=== PATIENT | female | born 1985 | race Two or more races ===

== ENCOUNTER 2016-08-16 13:14 | Emergency (ER) | payer MEDICAID ==
[2016-08-16 13:23] VITALS: BP 110/64
--- NOTE | 2016-08-16 13:42 | ER Document Report ---
ED Medical Screen (RME) - General Chief Complaint: Flu Symptoms Stated Complaint: NECK AND SHOULDER PAIN,FEVER Notes: 31 yo muscle spasms to neck and upper back, also c/o flu like symptoms x 2 days. TRAVEL OUTSIDE OF THE [place] IN LAST 30 DAYS: No - Related Data Allergies/Adverse Reactions: No Known Allergies Allergy (Verified 08/16/16 13:28) Past Medical History - Social History Chew tobacco use (# tins/day): Yes Renal/ Medical History: Denies: Hx Peritoneal Dialysis Past Surgical History: Reports: Hx Gynecologic Surgery - - Immunizations Hx Diphtheria, Pertussis, Tetanus Vaccination: Yes - Mar 2014 Physical Exam - Vital signs Vitals: Temp Pulse Resp BP Pulse Ox 99.7 F 106 H 18 110/64 100 08/16/16 13:22 08/16/16 13:22 08/16/16 13:22 08/16/16 13:22 08/16/16 13:22 Course - Vital Signs Vital signs: Temp Pulse Resp BP Pulse Ox 99.7 F 106 H 18 110/64 100 08/16/16 13:22 08/16/16 13:22 08/16/16 13:22 08/16/16 13:22 08/16/16 13:22
--- NOTE | 2016-08-16 15:00 | ER Document Report ---
[id number] SHOULDER PAIN,FEVER Notes: The patient is a 31-year-old female who presents with 4 days of myalgias, cough , rhinorrhea and fever. She works at [employer] and is exposed to the public. She did not get her flu shot this year. Has not taken any Tylenol or Motrin. Denies vomiting, abdominal pain, headache, neck stiffness, chest pain, shortness of breath or recent travel. TRAVEL OUTSIDE OF THE [place] IN LAST 30 DAYS: No - Related Data Allergies/Adverse Reactions: No Known Allergies Allergy (Verified 08/16/16 13:28) Past Medical History - General Information source: Patient - Social History Smoking Status: Never Smoker Chew tobacco use (# tins/day): Yes Frequency of alcohol use: None Family History: None Patient has suicidal ideation: No Patient has homicidal ideation: No Renal/ Medical History: Denies: Hx Peritoneal Dialysis Past Surgical History: Reports: Hx Gynecologic Surgery - - Immunizations Hx Diphtheria, Pertussis, Tetanus Vaccination: Yes - Mar 2014 Review of Systems - Review of Systems Notes: REVIEW OF SYSTEMS: CONSTITUTIONAL: +fevers, +chills EENT: -eye pain, -difficulty swallowing, -nasal congestion CARDIOVASCULAR: -chest pain, -syncope. RESPIRATORY: +cough, -SOB GASTROINTESTINAL: -abdominal pain, -nausea, -vomiting, -diarrhea GENITOURINARY: -dysuria, -hematuria MUSCULOSKELETAL: +myalgias, -back pain, -neck pain SKIN: -rash or skin lesions. HEMATOLOGIC: -easy bruising or bleeding. LYMPHATIC: -swollen, enlarged glands. NEUROLOGICAL: -altered mental status or loss of consciousness, -headache, - neurologic symptoms PSYCHIATRIC: -anxiety, -depression. ALL OTHER SYSTEMS REVIEWED AND NEGATIVE. Physical Exam - Vital signs Vitals: Temp Pulse Resp BP Pulse Ox 99.7 F 106 H 18 110/64 100 08/16/16 13:22 08/16/16 13:22 08/16/16 13:08/16/16 13:08/16/16 13:22 - Notes Notes: PHYSICAL EXAMINATION: GENERAL: Well-appearing, well-nourished and in no acute distress. HEAD: Atraumatic, normocephalic. EYES: Pupils equal round and reactive to light, extraocular movements intact, sclera anicteric, conjunctiva are normal. ENT: nares patent, oropharynx clear without exudates. Moist mucous membranes. NECK: Normal range of motion, supple without lymphadenopathy LUNGS: Breath sounds clear to auscultation bilaterally and equal. No wheezes rales or rhonchi. HEART: Tachycardic, Regular rhythm without murmurs ABDOMEN: Soft, nontender, normoactive bowel sounds. No guarding, no rebound. No masses appreciated. EXTREMITIES: Normal range of motion, no pitting or edema. No cyanosis. NEUROLOGICAL: Cranial nerves grossly intact. Normal speech, normal gait. Normal sensory, motor, and reflex exams. PSYCH: Normal mood, normal affect. SKIN: Warm, Dry, normal turgor, no rashes or lesions noted. Course - Re-evaluation Re-evalutation: Patient appears well. Has symptoms of viral infection and may have influenza. Her symptoms are ongoing for 4 days, so she does not qualify for Tamiflu. Instructed patient had symptomatic treatment, given return precautions and she understands. - Vital Signs Vital signs: Temp Pulse Resp BP Pulse Ox 99.7 F 106 H 18 110/64 100 08/16/16 13:22 08/16/16 13:22 08/16/16 13:22 08/16/16 13:22 08/16/16 13:22 Discharge - Discharge Clinical Impression: Viral illness Condition: Stable Disposition: HOME, SELF-CARE Additional Instructions: INFLUENZA: The physician feels that you have influenza -- the "flu". Influenza is an infection caused by a virus. Symptoms include generalized aching, fever, headache, dry cough, and fatigue. Some patients with the flu also have nausea, vomiting, and diarrhea. The fever and aches usually last two to four days, with the cough persisting another one to two weeks. Treatment of the flu, for the most part, is simply treatment of symptoms. Rest, drink plenty of fluids, and use acetaminophen for fever and aches. Do not take aspirin. There is an anti-viral medication, called Tamiflu, which may help in "type A" flu, but it's not helpful in every case of flu, and only works if started within the first 24 - 48 hours of the start of symptoms. The physician will determine whether this medication can help you. To prevent spread of the virus, use good handwashing. Shared toys should be cleaned with disinfectant. Clean the toilets, sinks, and counter surfaces in bathrooms. Launder clothing in hot water. What are conditions that should receive medical attention? The development of difficulty breathing. Lip color changes to blue or purple. Persistent vomiting and unable to keep liquids down with signs of dehydration such as: dizziness when standing, unable to urinate, or if child/infant is crying no tears are noticed. Is less responsive than normal or becomes confused. How do I decrease the spread of flu in my home? Taking care of the sick patient at home: Keep the sick person in a room separate from the common areas of the house. Keep the "sickroom" door closed. If the person with the flu needs to leave the home, they should cover their nose/mouth when coughing or sneezing and wear a disposable (surgical) mask if available. These masks may be available at your local pharmacy, medical supply and hardware store. If the sick person is in common areas of the house, have them wear a surgical mask. If possible, have the sick person use a separate bathroom that should be cleaned daily with a household disinfectant. If you are the caregiver: Avoid being face to face with the sick adult person as much as possible. Try to stay at least 6 feet away and wear a disposable surgical mask when possible. When holding small children who are sick, place their chin on your shoulder so that they will not cough in your face. Wash your hands after you touch the sick person or handle their tissues and laundry. Wear a mask if you leave home, as you may be infected from taking care of someone and not know it yet. Watch yourself and others in the home for flu symptoms and contact your doctor if symptoms occur. NOTE: Antiviral medication used to reduce the symptoms of the flu works only if taken within 48 hours, and best within 24 hours of symptom onset. Household Cleaning, laundry and waste disposal: Tissues and other disposable items used by the sick person should be thrown away in the trash. Wash your hands after touching these used items. No special waste disposal is required. Keep surfaces (especially bedside tables, bathroom surfaces, and toys for children) clean by wiping them down with a safe household disinfectant according to the directions on the product label. Per Center for Disease Control advice, most people will not receive testing to confirm flu. Also based on the person's health history and onset of symptoms, not all patients will receive prescriptions for antiviral medications. If you have questions related to this, please ask your healthcare provider. For more information, you can call the Centers for Disease Control and Prevention (CDC) Hotline at 8[employer] This line is available in Albanian and Mongolian, 24 hours a day, 7 days a week. Or www.[employer] or www.cdc.gov Flu-Like Illness Home Instructions: The influenza virus infection can cause a wide rage of symptoms, including: Fever, cough, sore throat, body aches, headaches, chills, fatigue, with some patients reporting diarrhea and vomiting Like seasonal influenza A, H1N1 ("swine flu")in humans can vary in severity from mild to severe Severe illness with pneumonia, respiratory failure and even is possible Certain groups might be more likely to develop a severe illness from H1N1 infection. Sometimes bacterial infections may occur at the same time as or after infection with influenza viruses and lead to pneumonias, ear infections, or sinus infections. How Flu Spreads The main way that influenza viruses spread is through respiratory droplets of coughs and sneezes. This can happen when someone with the infection coughs or sneezes and the particles fly through the air and land on other people and surfaces. If the person covers their mouth and nose with their hand but does not wash their hands immediately, then these germs are passed onto the next object that they touch. People with Influenza A or suspected H1N1 (swine flu) who are cared for at home should: Check with their doctor about any special care that they might need if they are or have a health condition such as diabetes, heart disease, asthma or emphysema. Also, limit caregiver to one (if possible). women or those with chronic health conditions should not take care of the flu patient unless necessary. Check with their doctor about whether or not medications are needed that may lessen the symptoms of the flu. Stay at home until 24 hours fever free without the use of fever reducing medication. Get plenty of rest and avoid other healthy people in your home. Drink plenty of clear liquids to keep from getting dehydrated. Take medications like Tylenol (Acetaminophen), Advil/Motrin/Nuprin ( Ibuprofen) or Aleve (Naproxen) for fevers and aches. All children under the age of 18 years of age should not take aspirin or products containing aspirin (e.g. Pepto Bismol), as this can cause a rare serious illness called Susan Syndrome. Over the counter medications for flu and colds may help, but it is very important to follow the package directions. Remember that the medicine may help the symptoms, but it will not help prevent others from getting sick if they are around you. Cover coughs and sneezes using your bent arm. Clean hands with soap and water or an alcohol-based hand rub often, especially after using tissues to cough or sneeze. Encourage hand washing frequently for all people living in the home! The sick person should not have visitors other than caregivers. Encourage concerned loved ones to call instead of visit. Avoid close contact with others-do not go to work or school while sick. USE OF ACETAMINOPHEN (Tylenol): Acetaminophen may be taken for pain relief or fever control. It's much safer than aspirin, offering a wider range of "safe" dosages. It is safe during . Some brand names are Tylenol, Panadol, Datril, Anacin 3, Tempra, and Liquiprin. Acetaminophen can be repeated every four hours. The following are maximum recommended dosages: WEIGHT Dose Drops Elixir Chewable( 80mg) (LBS.) drprs=droppers tsp=teaspoon 6 40 mg 0.4 ml (1/2) 6-11 80 mg 0.8 ml (full) tsp 1 tab 12-16 120 mg 1 1/2 drprs 3/4 tsp 1 1/2 tabs 17-23 160 mg 2 drprs 1 tsp 2 tabs 24-30 240 mg 3 drprs 1 1/2 tsp 3 tabs 30-35 320 mg 2 tsp 4 tabs 36-41 360 mg 2 1/4 tsp 4 1/2 tabs 42-47 400 mg 2 1/2 tsp 5 tabs 48-53 480 mg 3 tsp 6 tabs 54-59 520 mg 3 1/4 tsp 6 1/2 tabs 60-64 560 mg 3 1/2 tsp 7 tabs 65-70 600 mg 3 3/4 tsp 7 1/2 tabs 71-76 640 mg 4 tsp 8 tabs 77-82 720 mg 4 1/2 tsp 9 tabs 83-88 800 mg 5 tsp 10 tabs >89 pounds or adults 650 mg to 900 mg Acetaminophen can be repeated every four hours. Maximum dose not to exceed 4000 mg a day. These maximum recommended dosages are slightly higher than the dosages written on the product container, but these dosages are very safe and below the toxic dosage for acetaminophen. ORAL NARCOTIC MEDICATION: You have been given a prescription for pain control. This medication is a narcotic. It's best taken with food, as nausea can result if taken on an empty stomach. Don't operate machinery or drive within six hours of taking this medication. Do not combine this medicine with alcohol, or with any medication which can cause sedation (such as cold tablets or sleeping pills) unless you get permission from the physician. Narcotics tend to cause constipation. If possible, drink plenty of fluids and eat a diet high in fiber and fruits. Please be aware that prescription narcotics also have the potential for abuse. People become addicted to these medications because of the general sense of wellbeing that they induce. This feeling along with a significant reduction in tension, anxiety, and aggression provides a stimulating seductive quality to these drugs. Once your pain is under control, we encourage you to discard your unused narcotics. FOLLOW-UP CARE: If you have been referred to a physician for follow-up care, call the physician s office for an appointment as you were instructed or within the next two days. If you experience worsening or a significant change in your symptoms, notify the physician immediately or return to the Emergency Department at any time for re-evaluation. Prescriptions: Cyclobenzaprine HCl [Flexeril 10 mg Tablet] 10 mg PO TIDP PRN #15 tab PRN Reason: Oseltamivir Phosphate [Tamiflu 75 mg Capsule] 75 mg PO BID #10 capsule Forms: Return to Work
== END 2016-08-16 15:11 | disposition home or self-care (01) ==
LOC: ER 13:14
DX: M79.1 Myalgia (principal); R05 Cough; B34.9 Viral infection, unspecified; R50.9 Fever, unspecified; J34.89 Other specified disorders of nose and nasal sinuses
CPT/HCPCS: 99283

== ENCOUNTER 2016-08-26 00:03 | Emergency (ER) | payer MEDICAID ==
[2016-08-26] MEDS ORDERED: AZITHROMYCIN 250 MG TABLET PO ONE (02:40)
--- NOTE | 2016-08-26 02:41 | ER Document Report ---
ED General - General Chief Complaint: Sinus Pain Stated Complaint: COUGH Notes: Patient is a 31-year-old female who presents with 2 weeks of sinus pressure, cough, and rhinorrhea. Patient states the symptoms are constant and unchanged since onset. Nothing has improved her symptoms and she's been trying multiple lmca-wky-wrbrqzi remedies. Nothing worsens her symptoms. She has not had a fever. Denies any vomiting or diarrhea. No weakness or numbness. She has not seen her primary care doctor regarding today's concerns. Does describe the pain in her sinuses as being a constant, pressure-like sensation. TRAVEL OUTSIDE OF THE [place] IN LAST 30 DAYS: No - Related Data Allergies/Adverse Reactions: No Known Allergies Allergy (Verified 08/26/16 00:57) Past Medical History - General Information source: Patient - Social History Smoking Status: Never Smoker Frequency of alcohol use: None Drug Abuse: None Lives with: Spouse/Significant other Family History: None Renal/ Medical History: Denies: Hx Peritoneal Dialysis Past Surgical History: Reports: Hx Gynecologic Surgery - - Immunizations Hx Diphtheria, Pertussis, Tetanus Vaccination: Yes - Mar 2014 Review of Systems - Review of Systems Notes: Constitutional: Negative for fever. HENT: Positive for sinus pain Eyes: Negative for visual changes. Cardiovascular: Negative for chest pain. Respiratory: Negative for shortness of breath. Gastrointestinal: Negative for abdominal pain, vomiting or diarrhea. Genitourinary: Negative for dysuria. Musculoskeletal: Negative for back pain. Skin: Negative for rash. Neurological: Negative for headaches, weakness or numbness. 10 point ROS negative except as marked above and in HPI. Physical Exam - Vital signs Vitals: Temp Pulse Resp BP Pulse Ox 97.9 F 81 16 124/71 98 08/26/16 01:00 08/26/16 01:00 08/26/16 01:00 08/26/16 01:00 08/26/16 01:00 Interpretation: Normal Notes: PHYSICAL EXAMINATION: GENERAL: Well-appearing, well-nourished and in no acute distress. HEAD: Atraumatic, normocephalic. EYES: Pupils equal round and reactive to light, extraocular movements intact, sclera anicteric, conjunctiva are normal. ENT: nares patent, oropharynx clear without exudates. Moist mucous membranes. NECK: Normal range of motion, supple without lymphadenopathy LUNGS: Breath sounds clear to auscultation bilaterally and equal. No wheezes rales or rhonchi. HEART: Regular rate and rhythm without murmurs ABDOMEN: Soft, nontender, normoactive bowel sounds. No guarding, no rebound. No masses appreciated. EXTREMITIES: Normal range of motion, no pitting or edema. No cyanosis. NEUROLOGICAL: No focal neurological deficits. Moves all extremities spontaneously and on command. PSYCH: Normal mood, normal affect. SKIN: Warm, Dry, normal turgor, no rashes or lesions noted. Course - Re-evaluation Re-evalutation: 08/26/16 02:39 Presentation is most consistent with a viral upper respiratory infection. Patient is overall well appearance, vitals within normal limits, well-hydrated. Patient denies any headache, neck pain, and has no evidence of meningismus on examination. Lungs are clear bilaterally. No evidence of respiratory distress. Based on clinical exam and history, I do not suspect an acute pneumonia, meningitis, strep pharyngitis, or an acute encephalitis. No laboratory or imaging testing is indicated at this time. Patient states that she has had sinus pressure and pain for the last 3 weeks. I have informed her that this still likely has a viral sinusitis still but per her preference as well as the duration of her symptoms will treat with a course of azithromycin to see if this improves her symptoms.At this time will discharge with return precautions and follow-up recommendations. Verbal discharge instructions given a the bedside and opportunity for questions given. Medication warnings reviewed. Patient is in agreement with this plan and has verbalized understanding of return precautions and the need for primary care follow-up in the next 24-72 hours. - Vital Signs Vital signs: Temp Pulse Resp BP Pulse Ox 97.9 F 81 16 124/71 98 08/26/16 01:00 08/26/16 01:00 08/26/16 01:00 08/26/16 01:00 08/26/16 01:00 Discharge - Discharge Clinical Impression: Sinus infection Qualifiers: Sinusitis location: frontal Chronicity: acute Recurrence: non-recurrent Qualified Code(s): J01.10 - Acute frontal sinusitis, unspecified Condition: Good Disposition: HOME, SELF-CARE Additional Instructions: Your symptoms are most likely due to a viral infection it should resolve over the next 7-14 days. You should take [id number] guanfacine per bottle instructions to help thin the mucus. For nasal congestion: I would recommend that you get [id number]-[id number] oxymetazoline also known is afrin. Use only per bottle instructions and be sure to never use this for more than 3 days if you can develop severe rebound congestion. You may also use tylenol or ibuprofen as needed for aches and thorat discomfort. Please be sure to drink plenty of fluids and get rest. Return to the emergency department he began having difficulty breathing, chest pain, persistent vomiting, or any other symptoms that are concerning to you. Prescriptions: Azithromycin 250 mg PO DAILY #4 tablet Forms: Return to Work
[2016-08-26 04:04] VITALS: BP 114/61
== END 2016-08-26 04:02 | disposition home or self-care (01) ==
LOC: ER 00:03
DX: J01.10 Acute frontal sinusitis, unspecified (principal); R51 Headache; R05 Cough; J34.89 Other specified disorders of nose and nasal sinuses
CPT/HCPCS: 99283; Q0144

== ENCOUNTER 2016-10-24 16:42 | Emergency (ER) | payer MEDICAID ==
--- NOTE | 2016-10-24 18:40 | ER Document Report ---
ED Medical Screen (RME) - General Chief Complaint: Dizziness Stated Complaint: HEADACHE/DIZZY Mode of Arrival: Ambulatory Information source: Patient Notes: 31-year-old female presents with multiple complaints. Patient notes generalized joint aches body aches dizziness nasal congestion anxiety feeling that she is having out of body experience, chest pain. Patient notes she chronically has chest pain has a history of anxiety panic attacks I have greeted and performed a rapid initial assessment of this patient. A comprehensive ED assessment and evaluation of the patient, analysis of test results and completion of the medical decision making process will be conducted by additional ED providers. PHYSICAL EXAMINATION: GENERAL: Well-appearing, well-nourished and in no acute distress. HEAD: Atraumatic, normocephalic. EYES: Pupils equal round extraocular movements intact, conjunctiva are normal. ENT: Nares patent NECK: Normal range of motion LUNGS: No respiratory distress Musculoskeletal: Normal range of motion NEUROLOGICAL: Normal speech, normal gait. PSYCH: Extremely anxious SKIN: Warm, Dry, normal turgor, no rashes or lesions noted. TRAVEL OUTSIDE OF THE [place] IN LAST 30 DAYS: No - Related Data Allergies/Adverse Reactions: No Known Allergies Allergy (Verified 10/24/16 18:17) Past Medical History Renal/ Medical History: Denies: Hx Peritoneal Dialysis Past Surgical History: Reports: Hx Gynecologic Surgery - - Immunizations Hx Diphtheria, Pertussis, Tetanus Vaccination: Yes - Mar 2014 Physical Exam - Vital signs Vitals: Temp Pulse Resp BP Pulse Ox 98.2 F 80 18 123/67 98 10/24/16 16:58 10/24/16 16:58 10/24/16 16:58 10/24/16 16:58 10/24/16 16:58 Course - Vital Signs Vital signs: Temp Pulse Resp BP Pulse Ox 98.2 F 80 18 123/67 98 10/24/16 16:58 10/24/16 16:58 10/24/16 16:58 10/24/16 16:58 10/24/16 16:58
[2016-10-24 18:59] LABS: ABSOLUTE EOSINOPHILS # (AUTO) 0.1 10^3/uL (0.0-0.6); ABSOLUTE LYMPHOCYTES (AUTO) 2.2 10^3/uL (0.5-4.7); ABSOLUTE MONOCYTES (AUTO) 0.3 10^3/uL (0.1-1.4); BASOPHILS % (AUTO) 0.5 % (0-2); EOSINOPHILS % (AUTO) 1.5 % (0-6); HEMATOCRIT 37.2 % (36.0-47.0); HEMOGLOBIN 13.1 g/dL (12.0-15.5); HGB HCT DIFFERENCE 2.1; LYMPHOCYTES % (AUTO) 47.4 % (13-45); MEAN CORPUSCULAR HEMOGLOBIN 30.1 pg (27.0-33.4); MEAN CORPUSCULAR HGB CONC 35.2 g/dL (32.0-36.0); MEAN CORPUSCULAR VOLUME 86 fl (80-97); MONOCYTES % (AUTO) 6.7 % (3-13); RED BLOOD COUNT 4.35 10^6/uL (3.72-5.28); RED CELL DISTRIBUTION WIDTH 13.4 % (11.5-14.0); SEGMENTED NEUTROPHILS % (AUTO) 43.9 % (42-78); WHITE BLOOD COUNT 4.6 10^3/uL (4.0-10.5)
[2016-10-24 19:12] LABS: ALANINE AMINOTRANSFERASE 23 U/L (9-52); ALBUMIN 4.5 g/dL (3.5-5.0); ALKALINE PHOSPHATASE 65 U/L (38-126); ANION GAP 14 (5-19); ASPARTATE AMINO TRANSFERASE 21 U/L (14-36); BILIRUBIN,DIRECT 0.1 mg/dL (0.0-0.4); BILIRUBIN,TOTAL 0.5 mg/dL (0.2-1.3); BLOOD UREA NITROGEN 8 mg/dL (7-20); CALCIUM 9.5 mg/dL (8.4-10.2); CARBON DIOXIDE 26 mmol/L (22-30); CHLORIDE 103 mmol/L (98-107); CREATININE RESULT 0.52 mg/dL (0.52-1.25); GLUCOSE 85 mg/dL (75-110); POTASSIUM 4.1 mmol/L (3.6-5.0); TOTAL PROTEIN 7.4 g/dL (6.3-8.2)
[2016-10-24] MEDS ORDERED: DIAZEPAM INJ 10 MG/2 ML DISP.SYRIN IV ONE (19:27)
[2016-10-24] MEDS ORDERED: NORMAL SALINE 1000 ML 1,000 ML IV PRN (19:27)
[2016-10-24] MEDS ORDERED: ONDANSETRON HCL INJ/PF 4 MG/2 ML SDV IV ONE (19:27)
--- NOTE | 2016-10-24 19:31 | ER Document Report ---
ED General - General Chief Complaint: Dizziness Stated Complaint: HEADACHE/DIZZY Time seen by provider: 19:29 Mode of Arrival: Ambulatory Information source: Patient TRAVEL OUTSIDE OF THE [place] IN LAST 30 DAYS: No - HPI Patient complains to provider of: dizziness, diffuse tingling sensation, chest pain Onset: Yesterday Onset/Duration: Intermittent Quality of pain: Achy Severity: Mild Pain Level: 2 Similar symptoms previously: Yes Recently seen / treated by doctor: No Notes: Patient is a 31-year-old female with no past medical history who presents to the emergency room complaining of chest pain, body numbness and heaviness, bilateral knee pain, diffuse joint pain, dizziness, symptoms similar gone on intermittently for the past 2 days, and started after patient found that she was fired from her job, she is also been taking both of her young children for medical appointments as they've been sick over the past week which is what led to her getting fired from her job, she reports feeling upset yesterday, had an episode of the symptoms that lasted for a few hours, she took some Tylenol and went to bed, throughout the day today she's been having episodes intermittently , states she feels strange and like she is having "out of body experience", she is a history of these symptoms with stressful situations in the past but has never been diagnosed with anxiety or panic disorder - Related Data Allergies/Adverse Reactions: No Known Allergies Allergy (Verified 10/24/16 18:17) Past Medical History - General Information source: Patient - Social History Smoking Status: Former Smoker Chew tobacco use (# tins/day): No Frequency of alcohol use: None Drug Abuse: None Family History: None Patient has suicidal ideation: No Patient has homicidal ideation: No Renal/ Medical History: Denies: Hx Peritoneal Dialysis Past Surgical History: Reports: Hx Gynecologic Surgery - - Immunizations Hx Diphtheria, Pertussis, Tetanus Vaccination: Yes - Mar 2014 Review of Systems - Review of Systems Constitutional: See HPI EENT: No symptoms reported Cardiovascular: See HPI Respiratory: No symptoms reported Gastrointestinal: No symptoms reported Genitourinary: No symptoms reported Female Genitourinary: No symptoms reported Musculoskeletal: See HPI Skin: No symptoms reported Hematologic/Lymphatic: No symptoms reported Neurological/Psychological: See HPI -: Yes All other systems reviewed and negative Physical Exam - Vital signs Vitals: Temp Pulse Resp BP Pulse Ox 98.2 F 80 18 123/67 98 10/24/16 16:58 10/24/16 16:58 10/24/16 16:58 10/24/16 16:58 10/24/16 16:58 Interpretation: Normal - General General appearance: Appears well, Alert - HEENT Head: Normocephalic, Atraumatic Eyes: Normal Pupils: PERRL - Respiratory Respiratory status: No respiratory distress Chest status: Nontender Breath sounds: Normal Chest palpation: Normal - Cardiovascular Rhythm: Regular Heart sounds: Normal auscultation Murmur: No - Abdominal Inspection: Normal Distension: No distension Bowel sounds: Normal Tenderness: Nontender Organomegaly: No organomegaly - Back Back: Normal, Nontender - Extremities General upper extremity: Normal inspection, Nontender, Normal color, Normal ROM , Normal temperature General lower extremity: Normal inspection, Nontender, Normal color, Normal ROM , Normal temperature, Normal weight bearing. No: Garrick's sign - Neurological Neuro grossly intact: Yes Cognition: Normal Orientation: AAOx4 Sundar Coma Scale Eye Opening: Spontaneous [place] Coma Scale Verbal: Oriented Sundar Coma Scale Motor: Obeys Commands Sundar Coma Scale Total: 15 Speech: Normal Motor strength normal: LUE, RUE, LLE, RLE Sensory: Normal - Psychological Associated symptoms: Normal affect, Normal mood - Skin Skin Temperature: Warm Skin Moisture: Dry Skin Color: Normal Course - Re-evaluation Re-evalutation: 10/24/16 22:26 Patient reports feeling much better, symptoms consistent with anxiety/panic attack, she will be discharged with a prescription for small amount of Valium as well as information with resources to follow-up with, patient advised to return if symptoms worsen, patient acknowledges understanding and agreement with this plan - Vital Signs Vital signs: Temp Pulse Resp BP Pulse Ox 98.2 F 80 18 123/67 98 10/24/16 16:58 10/24/16 16:58 10/24/16 16:58 10/24/16 16:58 10/24/16 16:58 - Laboratory Result Diagrams: 10/24/16 18:45 10/24/16 18:45 Laboratory results interpreted by me: 10/24/16 18:45 Lymphocytes % 47.4 H - EKG Interpretation by Pa EKG shows normal: Sinus rhythm Rate: Normal Rhythm: NSR Discharge - Discharge Clinical Impression: Anxiety Condition: Stable Disposition: HOME, SELF-CARE Instructions: Anxiety ([facility]), Panic Attack ([facility]) Additional Instructions: Follow up with your primary care provider in one to 2 days. Return to the emergency room immediately if symptoms worsen or any additional concerns. Prescriptions: Diazepam [Valium 2 mg Tablet] 2 mg PO Q6HP PRN #15 tablet PRN Reason:
--- NOTE | 2016-10-24 22:22 | EKG REPORT ---
SEVERITY:- NORMAL ECG - SINUS RHYTHM : Confirmed by: Rakesh Shipman 24-Oct-2016 22:21:20
[2016-10-24 22:47] VITALS: BP 111/64
== END 2016-10-24 22:45 | disposition home or self-care (01) ==
LOC: ER 16:42
DX: F41.9 Anxiety disorder, unspecified (principal); R42 Dizziness and giddiness; R20.2 Paresthesia of skin; R07.9 Chest pain, unspecified; R20.0 Anesthesia of skin; M25.561 Pain in right knee; M25.562 Pain in left knee; Z87.891 Personal history of nicotine dependence
CPT/HCPCS: 93005; 99284; 96361; 96374; 96375; 36415; 84443; 84703; 85025; 80053; 93010; J3360; J2405; J7030

== ENCOUNTER 2017-10-19 22:56 | Emergency (ER) | payer SELFPAY ==
[2017-10-20] MEDS ORDERED: BENZONATATE 100 MG CAPSULE PO ONE (00:51)
[2017-10-20] MEDS ORDERED: LIDOCAINE 2% INJ-PF (20 MG/ML) 10 ML AMPUL NEB ONE (00:51)
[2017-10-20] MEDS ORDERED: IPRATROPIUM/ALBUTEROL 0.5-2.5 MG/3 ML AMPUL NEB ONE (00:51)
--- NOTE | 2017-10-20 01:28 | RADIOLOGY REPORT (SQ) ---
EXAM DESCRIPTION: CHEST SINGLE VIEW CLINICAL HISTORY: cough COMPARISON: 09/18/2013 FINDINGS: Single frontal view of the chest. The cardiomediastinal silhouette has normal size and contour. No consolidation, pneumothorax, or pleural effusion. No displaced rib fractures identified. Low lung volumes. Upper abdominal soft tissues are unremarkable. IMPRESSION: 1. No acute pulmonary process identified.
[2017-10-20] MEDS ORDERED: ALBUTEROL SULFATE HFA (90 MCG/PUFF) 200 PUFF/8.5 GM MDI IH ONE (01:50)
[2017-10-20] MEDS ORDERED: DEXAMETHASONE 4 MG TABLET PO ONE (01:50)
--- NOTE | 2017-10-20 01:52 | ER Document Report ---
ED General - General Chief Complaint: Cough Stated Complaint: COUGH Time Seen by Provider: 10/20/17 00:10 Notes: Is a 32-year-old female without chronic medical problems who presents with 4 weeks of coughing and feeling run down. Patient states that she has a persistent cough that "just will not go away". She states that she has tried all the [id number] remedies that she can think of and has not had any improvement of her symptoms. She has not noted that anything worsens her symptoms. She does not smoke and denies any history of asthma or COPD. Multiple sick contacts with similar symptoms. She denies any fever, shortness of breath, syncope, vomiting or diarrhea. She denies any history of similar symptoms in the past. TRAVEL OUTSIDE OF THE [place] IN LAST 30 DAYS: No - Related Data Allergies/Adverse Reactions: No Known Allergies Allergy (Verified 10/24/16 18:17) Past Medical History - General Information source: Patient - Social History Smoking Status: Never Smoker Chew tobacco use (# tins/day): No Frequency of alcohol use: None Drug Abuse: None Lives with: Family Family History: Reviewed & Not Pertinent Patient has suicidal ideation: No Patient has homicidal ideation: No Renal/ Medical History: Denies: Hx Peritoneal Dialysis Past Surgical History: Reports: Hx Gynecologic Surgery - - Immunizations Hx Diphtheria, Pertussis, Tetanus Vaccination: Yes - Mar 2014 Review of Systems - Review of Systems Notes: Constitutional: Negative for fever. HENT: Negative for sore throat. Eyes: Negative for visual changes. Cardiovascular: Negative for chest pain. Respiratory: Positive for persistent cough and sputum production Gastrointestinal: Negative for abdominal pain, vomiting or diarrhea. Genitourinary: Negative for dysuria. Musculoskeletal: Negative for back pain. Skin: Negative for rash. Neurological: Negative for headaches, weakness or numbness. 10 point ROS negative except as marked above and in HPI. Physical Exam - Vital signs Vitals: Temp Pulse Resp BP Pulse Ox 97.8 F 70 16 102/66 99 10/19/17 23:11 10/19/17 23:11 10/19/17 23:11 10/19/17 23:11 10/19/17 23:11 Interpretation: Normal Notes: PHYSICAL EXAMINATION: GENERAL: Well-appearing, well-nourished and in no acute distress. HEAD: Atraumatic, normocephalic. EYES: Pupils equal round and reactive to light, extraocular movements intact, sclera anicteric, conjunctiva are normal. ENT: nares patent, oropharynx clear without exudates. Moist mucous membranes. NECK: Normal range of motion, supple without lymphadenopathy LUNGS: Breath sounds clear to auscultation bilaterally and equal. No wheezes rales or rhonchi. HEART: Regular rate and rhythm without murmurs ABDOMEN: Soft, nontender, normoactive bowel sounds. No guarding, no rebound. No masses appreciated. EXTREMITIES: Normal range of motion, no pitting or edema. No cyanosis. NEUROLOGICAL: No focal neurological deficits. Moves all extremities spontaneously and on command. PSYCH: Normal mood, normal affect. SKIN: Warm, Dry, normal turgor, no rashes or lesions noted. Course - Re-evaluation Re-evalutation: 10/20/17 01:50 Patient presents with a clinical history and exam most consistent with an acute viral bronchitis. Patient is overall well in appearance without tachypnea, hypoxemia, tachycardia, or difficulty with ambulation. Breath sounds are clear bilaterally. No fever. Patient does have additional signs of upper respiratory infection including nasal congestion, sore throat, and sinus pressure. No indication for labs or imaging. Will treat with bronchodilators, single dose of dexamethasone, and Tessalon Perles. Chest x-ray is clear without any evidence of an acute pneumonia. At this time will discharge with return precautions and follow-up recommendations. Verbal discharge instructions given a the bedside and opportunity for questions given. Medication warnings reviewed. Patient is in agreement with this plan and has verbalized understanding of return precautions and the need for primary care follow-up in the next 24-72 hours. - Vital Signs Vital signs: Temp Pulse Resp BP Pulse Ox 98.3 F 105 H 16 104/46 L 100 10/20/17 02:39 10/20/17 02:39 10/20/17 02:39 10/20/17 02:39 10/20/17 02:39 - Diagnostic Test Radiology reviewed: Image reviewed, Reports reviewed Radiology results interpreted by me: 10/20/17 01:51 Chest x-ray: No acute infiltrate or pneumothorax Discharge - Discharge Clinical Impression: Bronchitis, Persistent cough Condition: Good Disposition: HOME, SELF-CARE Additional Instructions: You were seen for symptoms most consistent with bronchitis. This can take up to 12 weeks to fully resolve. This is generally due to a viral infection. Please follow-up with your primary doctor in the next 2-3 days. Return if you develop worsening cough, vomiting, fever >100.4, pass out, begin coughing blood, or have any other symptoms that are concerning to you. Please use the medications prescribed today as directed. Prescriptions: Benzonatate [Tessalon Perles 100 mg Capsule] 100 mg PO Q8HP PRN #40 capsule PRN Reason: Forms: Return to Work
[2017-10-20 02:53] VITALS: BP 104/46
== END 2017-10-20 02:53 | disposition home or self-care (01) ==
LOC: ER 22:56
DX: J40 Bronchitis, not specified as acute or chronic (principal)
CPT/HCPCS: 94640; 99283; 71045; J3490 ×2; J7620

== ENCOUNTER 2018-03-01 08:50 | Emergency (ER) | payer SELFPAY ==
[2018-03-01 08:59] VITALS: BP 123/56
[2018-03-01 10:06] LABS: APPEARANCE,URINE SLIGHTLY-CLOUDY; BILIRUBIN,URINE NEGATIVE (NEGATIVE); GLUCOSE, URINE 50 mg/dL (NEGATIVE); KETONES,URINE NEGATIVE (NEGATIVE); LEUKOCYTE ESTERASE,URINE NEGATIVE (NEGATIVE); NITRITE,URINE NEGATIVE (NEGATIVE); PROTEIN,URINE NEGATIVE (NEGATIVE); URINE SPECIFIC GRAVITY 1.035
[2018-03-01] MEDS ORDERED: NORMAL SALINE 1000 ML 1,000 ML IV ONE (10:06)
[2018-03-01] MEDS ORDERED: KETOROLAC TROMETHAMINE INJ/PF 30 MG/1 ML SDV IV ONE (10:07)
[2018-03-01 10:09] LABS: COLOR,URINE YELLOW
[2018-03-01 10:23] LABS: ANION GAP 13 (5-19); BLOOD UREA NITROGEN 11 mg/dL (7-20); CARBON DIOXIDE 25 mmol/L (22-30); CHLORIDE 106 mmol/L (98-107); GLUCOSE 90 mg/dL (75-110); POTASSIUM 3.8 mmol/L (3.6-5.0); SODIUM 144.2 mmol/L (137-145)
--- NOTE | 2018-03-01 10:28 | ER Document Report ---
ED General - General Chief Complaint: Urinary Problem Stated Complaint: URINARY PROBLEMS Time Seen by Provider: 03/01/18 09:17 TRAVEL OUTSIDE OF THE [place] IN LAST 30 DAYS: No - HPI Patient complains to provider of: Multiple medical issues Notes: Patient coming in for 1 month of dysuria while smelling urine no vaginal bleeding or vaginal discharge also coming in with a 2 day history of cough congestion throat hurting feeling like there is something stuck in her throat along with bilateral ear pain. Patient denies any fevers chills nausea vomiting. Patient is unaware of her status. Patient otherwise is sleeping upon my evaluation easily arousable. No signs of any acute distress upon waking the patient. Denies any past medical history denies any allergies to medications denies any recent travel or antibiotics. Patient does work at a [employer] - Related Data Allergies/Adverse Reactions: No Known Allergies Allergy (Verified 03/01/18 08:56) Past Medical History - Social History Smoking Status: Former Smoker Chew tobacco use (# tins/day): No Frequency of alcohol use: Occasional Drug Abuse: None Family History: Reviewed & Not Pertinent Patient has suicidal ideation: No Patient has homicidal ideation: No Renal/ Medical History: Denies: Hx Peritoneal Dialysis Past Surgical History: Reports: Hx Gynecologic Surgery - - Immunizations Hx Diphtheria, Pertussis, Tetanus Vaccination: Yes - Mar 2014 Review of Systems - Review of Systems Constitutional: Other - Throat pain and ear pain chest congestion dysuria EENT: No symptoms reported Cardiovascular: No symptoms reported Respiratory: No symptoms reported Gastrointestinal: No symptoms reported Genitourinary: No symptoms reported Female Genitourinary: No symptoms reported Musculoskeletal: No symptoms reported Skin: No symptoms reported Hematologic/Lymphatic: No symptoms reported Neurological/Psychological: No symptoms reported -: Yes All other systems reviewed and negative Physical Exam - Vital signs Vitals: Temp Pulse Resp BP Pulse Ox 98.7 F 92 18 123/56 L 99 03/01/18 08:58 03/01/18 08:58 03/01/18 08:58 03/01/18 08:58 03/01/18 08:58 Interpretation: Normal - General General appearance: Appears well, Alert - HEENT Head: Normocephalic, Atraumatic Eyes: Normal Cornea: Normal Extraocular movements intact: Yes Eyelashes: Normal Pupils: PERRL Fundascopic: Normal Ears: Normal External canal: Normal Tympanic membrane: Normal Sinus: Normal Nasal: Normal Mouth/Lips: Normal Mucous membranes: Normal Pharynx: Normal Neck: Normal, Other - Single right sided lymph node found in the occipital region freely mobile nontender - Respiratory Respiratory status: No respiratory distress Chest status: Nontender Breath sounds: Normal Chest palpation: Normal - Cardiovascular Rhythm: Regular Heart sounds: Normal auscultation Murmur: No - Abdominal Inspection: Normal Distension: No distension Bowel sounds: Normal Tenderness: Nontender Organomegaly: No organomegaly - Back Back: Normal, Nontender - Extremities General upper extremity: Normal inspection, Nontender, Normal color, Normal ROM , Normal temperature General lower extremity: Normal inspection, Nontender, Normal color, Normal ROM , Normal temperature, Normal weight bearing. No: Garrick's sign - Neurological Neuro grossly intact: Yes Cognition: Normal Orientation: AAOx4 Sundar Coma Scale Eye Opening: Spontaneous [place] Coma Scale Verbal: Oriented [place] Coma Scale Motor: Obeys Commands [place] Coma Scale Total: 15 Speech: Normal Motor strength normal: LUE, RUE, LLE, RLE Sensory: Normal - Psychological Associated symptoms: Normal affect, Normal mood - Skin Skin Temperature: Warm Skin Moisture: Dry Skin Color: Normal Course - Re-evaluation Re-evalutation: 03/01/18 17:58 Laboratory studies now show any significant pathology for the patient's multiple symptoms. Upon discharge patient is now requesting to be treated for STDs. Patient agrees with treatment of Rocephin and azithromycin and Flagyl for diarrhea chlamydia and trichomonas. While the patient has underlying viral etiology for most of her symptoms. Patient will be discharged home follow-up primary care physician. 03/01/18 17:59 Antacid given for patient's globe sisters - Vital Signs Vital signs: Temp Pulse Resp BP Pulse Ox 98.7 F 92 18 123/56 L 99 03/01/18 08:58 03/01/18 08:58 03/01/18 08:58 03/01/18 08:58 03/01/18 08:58 - Laboratory Result Diagrams: 03/01/18 09:13 Laboratory results interpreted by me: 03/01/18 03/01/18 09:09 09:13 Creatinine 0.49 L Urine Glucose (UA) 50 H Urine Blood SMALL H Urine Urobilinogen 4.0 H Discharge - Discharge Clinical Impression: Globus hystericus, Dysuria, Viral syndrome Condition: Good Instructions: Viral Syndrome ([facility]), Gonorrhea ([facility]), Chlamydia ([facility]), Trichomonas Infection ([facility]) Additional Instructions: Your laboratory studies and physical examination did not show any signs significant for bacterial infection requiring antibiotics. Strep testing is negative mono testing is negative your chest evaluation reveals no signs of pneumonia. Urinalysis is negative for any signs of urinary tract infection and negative for At your request today we will treat you for gonorrhea chlamydia and trichomonas which are all 3 sexual transmitted diseases. No sexual contact for the next 2 weeks. Will recommend having her partners tested and treated. Return to ER symptoms worsen. The ear pain and the feeling of something stuck in her throat and throat pain may be due to underlying acid reflux, globus hystericus sensation. Treatment for this will involve anti-acid medication. Please take as prescribed return to the ER for any worsening of symptoms. Prescriptions: Ibuprofen [Motrin 600 mg Tablet] 600 mg PO Q8HP PRN #21 tablet PRN Reason: Ondansetron [Zofran Odt 4 mg Tablet] 1 - 2 tab PO Q4H PRN #15 tab.rapdis PRN Reason: For Nausea/Vomiting Ranitidine HCl [Zantac 75 mg Tablet] 75 mg PO BID #30 tablet Referrals: ESPERANZA COPELAND MD [Primary Care Provider] - Follow up as needed
[2018-03-01] MEDS ORDERED: MAG HYDROX/AL HYDROX/SIMETH SUSP 30 ML UDCUP PO ONE (10:33)
[2018-03-01] MEDS ORDERED: METOCLOPRAMIDE HCL ORAL SOLN 10 MG/10 ML UDCUP PO ONE (10:33)
[2018-03-01] MEDS ORDERED: LIDOCAINE 2% VISCOUS SOLN 20 ML UDCUP PO ONE (10:33)
[2018-03-01] MEDS ORDERED: METRONIDAZOLE 500 MG TABLET PO ONE (11:05)
[2018-03-01] MEDS ORDERED: CEFTRIAXONE INJ 250 MG VIAL IM ONE (11:05)
[2018-03-01] MEDS ORDERED: AZITHROMYCIN 1 GM SUSP PACKET PO ONE (11:05)
== END 2018-03-01 11:38 | disposition home or self-care (01) ==
LOC: ER 08:50
DX: F45.8 Other somatoform disorders (principal); R30.0 Dysuria; B34.9 Viral infection, unspecified; R39.198 Other difficulties with micturition; Z87.891 Personal history of nicotine dependence; R07.0 Pain in throat; H92.09 Otalgia, unspecified ear; R09.89 Other specified symptoms and signs involving the circulatory and respiratory systems
CPT/HCPCS: 99283; 96372; 96361; 96374; 36415; 87070; 87880; 81025; 86308; 80048; 81001; J3490; Q0144; J1885; J7030; J0696

== ENCOUNTER → 2018-05-22 | Outpatient (CLI) | payer SELFPAY ==
--- NOTE | 2018-05-22 13:55 | RADIOLOGY REPORT (SQ) ---
EXAM DESCRIPTION: U/S [id number] TRNABD 1GES W/ODOP COMPLETED DATE/TIME: 05/22/2018 1:44 pm REASON FOR STUDY: Z34.81 ENCOUNTER FOR SUPRVSN OF NORMAL , FIRST TRIMESTER Z34.81 ENCOUNTE R FOR SUPRVSN OF NORMAL , FIRST TRIM COMPARISON: None. TECHNIQUE: Transabdominal static and realtime grayscale images acquired of the pelvis. Additional se lected spectral and color Doppler images recorded. All images stored on PACs. bHCG: Not applicable. CLINICAL DATES: LMP 03/19/2018 9 weeks 1 day LIMITATIONS: None. FINDINGS: FETUS: Single Living intrauterine . ULTRASOUND EGA: 13 weeks 6 days ULTRASOUND PRASHANT: 11/26/2018 EFW: Not applicable less than 20 weeks. CRL: 6.8 cm. FHR: 137 beats per minute. SURVEY: Too early to assess. AMNIOTIC FLUID: Adequate amount. PLACENTA: Not yet developed due to early gestation. SUBCHORIONIC BLEED: No SIZE OF BLEED: Not applicable. UTERUS: No masses. No anomalies. CERVICAL LENGTH: 4.4 cm. Closed. RIGHT ADNEXA: Ovary not seen. No adnexal free fluid. No adnexal masses. LEFT ADNEXA: Ovary not seen. No adnexal free fluid. No adnexal masses. FREE FLUID: None. OTHER: No other significant finding. IMPRESSION: LIVING INTRAUTERINE . EGA 13 weeks 6 days. Trimester of : 2nd TECHNICAL DOCUMENTATION: JOB ID: [id number] [employer]- All Rights Reserved rev Reading location - IP/workstation name: [email or web address]
== END ==
LOC: WI 14:03
PROVIDERS: ATTEND Nurse Practitioner
DX: Z34.81 Encounter for supervision of other normal pregnancy, first trimester (principal)
CPT/HCPCS: 76801

== ENCOUNTER 2018-08-06 19:21 | Emergency (ER) | payer MEDICAID ==
--- NOTE | 2018-08-06 22:34 | ER Document Report ---
ED Medical Screen (RME) - General Chief Complaint: Dizziness Stated Complaint: DIZZINESS Time Seen by Provider: 08/06/18 22:28 Primary Care Provider: TANYA KING APRN [NO LOCAL MD] - Follow up as needed Notes: Patient is a 33 year old female, currently 6 months who presents to the emergency department with a chief complaint of dizziness and abdominal pain in her lower abdomen and upper abdomen. She said she went to the doctor today and nothing was done. She states that she, "just does not feel right." She states that she has a history of low iron. She does state that she has some vaginal discharge. She denies loss of vision, loss of consciousness, vomiting, double vision, or loss of vision. TRAVEL OUTSIDE OF THE [place] IN LAST 30 DAYS: No - Related Data Allergies/Adverse Reactions: No Known Allergies Allergy (Verified 08/07/18 13:32) Past Medical History - General Information source: Patient - Social History Family history: Reviewed & Not Pertinent Renal/ Medical History: Denies: Hx Peritoneal Dialysis Past Surgical History: Reports: Hx Gynecologic Surgery - - Immunizations Hx Diphtheria, Pertussis, Tetanus Vaccination: Yes - Mar 2014 Review of Systems - Review of Systems Notes: REVIEW OF SYSTEMS: CONSTITUTIONAL : Denies recent illness. Denies recent unintentional weight loss. Denies fever, chills, or sweats. EENT: Denies eye, ear, throat, or mouth pain, discharge, or symptoms. Denies nasal or sinus congestion. CARDIOVASCULAR: Denies chest pain. RESPIRATORY: Denies shortness of breath, cough, congestion, difficulty breathing, or wheezing. GASTROINTESTINAL: See HPI. GENITOURINARY: Denies difficulty urinating, burning, blood in urine, urgency or frequency. MUSCULOSKELETAL: Denies neck and back pain. Denies joint pain or swelling. SKIN: Denies rash, itchiness, or lesions HEMATOLOGIC : Denies easy bruising or bleeding. LYMPHATIC: Denies swollen, painful, enlarged glands. NEUROLOGICAL: See HPI. PSYCHIATRIC: Denies stress, anxiety, alteration in sleep patterns, or depression. NYLON WINDER: See HPI. All other systems reviewed and negative. Physical Exam - Vital signs Vitals: Temp Pulse Resp BP Pulse Ox 98.1 F 80 16 124/60 99 08/06/18 20:04 08/06/18 20:04 08/06/18 20:04 08/06/18 20:04 08/06/18 20:04 - Notes Notes: PHYSICAL EXAMINATION: GENERAL: Appears tired, healthy, well-nourished, no acute distress. HEAD: Normocephalic, atraumatic. EYES: PERRL, conjunctiva normal, all extraocular movements intact, sclera nonicteric ENT: Moist mucous membranes. NECK: Supple, no noticeable swelling, redness, rash. Normal range of motion. LUNGS: Equal breath sounds bilaterally and clear to auscultation. No wheezes rales or rhonchi. CARDIOVASCULAR: S1-S2, regular rate, regular rhythm. Radial pulses 2+, normal. ABDOMEN: Normoactive bowel sounds. Soft, tender, no guarding, no rebound tenderness, and no masses palpated. EXTREMITIES: Normal strength and range of motion, no pitting or edema. No cyanosis. NEUROLOGICAL: Moves all extremities upon command. Strength 5/5 in all extremities. PSYCH: Appears anxious. SKIN: Warm, dry. No rash, lesions, ulcerations noted. Normal skin turgor. Course - Re-evaluation Re-evalutation: 08/06/18 22:41 Based off patient having abdominal pain, she will be discharged and sent for a labor check. - Vital Signs Vital signs: Temp Pulse Resp BP Pulse Ox 98.2 F 70 16 114/55 L 100 08/06/18 22:53 08/06/18 22:53 08/06/18 22:53 08/06/18 22:53 08/06/18 22:53 Doctor's Discharge - Discharge Clinical Impression: Abdominal pain Qualifiers: Abdominal location: unspecified location Qualified Code(s): R10.9 - Unspecified abdominal pain Condition: Stable Disposition: LABOR CHECK Additional Instructions: You were seen today in the emergency department for dizziness and abdominal pain. You will be sent to labor and delivery to have a labor check. Please return to the emergency department if you feel your symptoms are not getting better. Referrals: TANYA KING APRN [NO LOCAL MD] - Follow up as needed
[2018-08-06 22:55] VITALS: BP 114/55
== END 2018-08-06 22:55 | disposition admitted as inpatient to this hospital (09) ==
LOC: ER 19:21
DX: O26.899 Other specified pregnancy related conditions, unspecified trimester (principal); R10.10 Upper abdominal pain, unspecified; R10.30 Lower abdominal pain, unspecified; R42 Dizziness and giddiness; N89.8 Other specified noninflammatory disorders of vagina; Z3A.00 Weeks of gestation of pregnancy not specified
CPT/HCPCS: 99283

== ENCOUNTER 2018-08-06 22:49 | Outpatient (CLI) | payer MEDICAID ==
[2018-08-06 23:34] LABS: BACTERIA (WET MOUNT) 3+ BACTERIA SEEN; EPITHELIALS (WET MOUNT) 3+ EPITHELIALS SEEN; T.VAGINALIS (WET MOUNT) NO TRICHOMONAS SEEN; WBCS (WET MOUNT) RARE WBCS SEEN; YEAST (WET MOUNT) NO YEAST SEEN
[2018-08-06 23:35] LABS: APPEARANCE,URINE SLIGHTLY-CLOUDY; BILIRUBIN,URINE NEGATIVE (NEGATIVE); COLOR,URINE YELLOW; GLUCOSE, URINE NEGATIVE (NEGATIVE); KETONES,URINE NEGATIVE (NEGATIVE); LEUKOCYTE ESTERASE,URINE NEGATIVE (NEGATIVE); NITRITE,URINE NEGATIVE (NEGATIVE); PROTEIN,URINE NEGATIVE (NEGATIVE); URINE SPECIFIC GRAVITY 1.011; UROBILINOGEN,URINE NEGATIVE mg/dL (<2.0)
[2018-08-06 23:55] LABS: URINE AMPHETAMINES SCREEN NEGATIVE; URINE BARBITURATES SCREEN NEGATIVE; URINE BENZODIAZEPINES SCREEN NEGATIVE; URINE COCAINE SCREEN NEGATIVE; URINE MARIJUANA (THC) SCREEN NEGATIVE; URINE METHADONE SCREEN NEGATIVE; URINE PHENCYCLIDINE SCREEN NEGATIVE
--- NOTE | 2018-08-06 23:56 | RADIOLOGY REPORT (SQ) ---
EXAM DESCRIPTION: US LIMITED COMPLETED DATE/TME: 08/06/2018 00:00 CLINICAL HISTORY: 33 years, Female, reported abdominal cramping, cervical length COMPARISON: None. TECHNIQUE: Limited second/third trimester OB ultrasound LIMITATIONS: None. FINDINGS: There is a single, live intrauterine gestation in vertex presentation, with heart tones obtained at 145 bpm. Cervical length is obtained at 4.2 cm. The os appears closed. Largest ventral pocket was obtained at 6.5 cm. The placenta is anterior in location with a grade 1 echotexture. No evidence for previa. A detailed anatomic assessment was not performed. Current gestational age is 24 weeks 0 days. IMPRESSION: Single, live intrauterine gestation, as above. Cervical length 4.2 cm. Continued nonemergent obstetric follow-up limited copyright 2011 [employer]- All Rights Reserved
[2018-08-07 01:30] LABS: CHLAM PCR NOT DETECTED (NOT DETECT); GON PCR NOT DETECTED (NOT DETECT)
== END 2018-08-07 00:16 | disposition home or self-care (01) ==
LOC: LC 22:49
PROVIDERS: ATTEND Student in an Organized Health Care Education/Training Program
PROC: 4A1HXCZ Monitoring of Products of Conception, Cardiac Rate, External Approach (ICD-10-PCS; principal; 2018-08-06)
DX: O47.02 False labor before 37 completed weeks of gestation, second trimester (principal); O26.892 Other specified pregnancy related conditions, second trimester; R55 Syncope and collapse; R42 Dizziness and giddiness; Z3A.24 24 weeks gestation of pregnancy
CPT/HCPCS: 76815; 80307; 81001; 87210; 87491; 87591

== ENCOUNTER 2018-08-07 00:22 | Emergency (ER) | payer MEDICAID ==
--- NOTE | 2018-08-07 16:56 | ER Document Report ---
HPI - HPI Pain Level: 1 Context: Patient is a 33-year old female who presents to the emergency department with a chief complaint of chest pain and dizziness. She was seen in the emergency department a few hours ago with complaints of dizziness and abdominal pain. She is 6 months and she was sent for a labor check. She is now cleared for her labor check and she presents with chest pain. She states, "I can not stay because my ride is here. I just would like to know if my EKG is good." Unfortunately she could not elaborate on her chest pain because she needed to go. - CONSTITUTIONAL Constitutional: DENIES: Fever - CARDIOVASCULAR Cardiovascular: REPORTS: Chest pain - RESPIRATORY Respiratory: DENIES: Trouble Breathing, Coughing - GASTROINTESTINAL Gastrointestinal: REPORTS: Abdominal Pain - REPRODUCTIVE Reproductive: REPORTS: : - DERM Skin Color: Normal Skin Problems: None Past Medical History - Social History Smoking Status: Unknown if Ever Smoked Family History: Reviewed & Not Pertinent Renal/ Medical History: Denies: Hx Peritoneal Dialysis Past Surgical History: Reports: Hx Genitourinary Surgery - , Hx Gynecologic Surgery - - Immunizations Hx Diphtheria, Pertussis, Tetanus Vaccination: Yes - Mar 2014 Vertical Provider Document - INFECTION CONTROL TRAVEL OUTSIDE OF THE [place] IN LAST 30 DAYS: No - HEENT HEENT: Atraumatic, Normocephalic - RESPIRATORY Respiratory: Breath Sounds Normal, No Respiratory Distress - CARDIOVASCULAR Cardiovascular: Regular Rate, Regular Rhythm Pulses: Normal: Radial - GI/ABDOMEN Gastrointestinal: Abdomen Soft Notes: Appears - MUSCULOSKELETAL/EXTREMETIES Musculoskeletal/Extremeties: FROM - NEURO Level of Consciousness: Awake, Alert, Appropriate - DERM Integumentary: Warm, Dry Course - Re-evaluation Re-evalutation: 08/07/18 Unfortunately the patient was unable to stay and she needed to leave because her ride was here to pick her up. I informed the patient that her workup was not complete and that if she continues to have symptoms, to return to the emergency department as soon as possible. She verbalized understanding. - EKG Interpretation by Me Additional EKG results interpreted by me: 08/07/18 00:40 Sinus Rhythm. Rate 68. AK 160; QRS 92; QT 420; QTc 447. No ST elevations or depressions. No change from previous EKG. Discharge - Discharge Clinical Impression: Chest pain Qualifiers: Chest pain type: other chest pain Qualified Code(s): R07.89 - Other chest pain Qualifiers: Weeks of gestation: 30 weeks Qualified Code(s): Z3A.30 - 30 weeks gestation of Condition: Stable Disposition: HOME, SELF-CARE Additional Instructions: (Verbal discharge instructions given, patient unable to wait for paperwork. Her ride was waiting for her.) You were seen in the emergency department for chest pain. Your EKG is normal. Unfortunately your workup is incomplete. If you continue to feel your same symptoms, please return to the emergency department for additional workup. If you pass out, have shortness of breath, have chest pain, or have any symptoms that are worrisome to you, please return to the emergency department. Referrals: LUISA HOGAN MD [Primary Care Provider] - Follow up as needed
--- NOTE | 2018-08-07 23:09 | EKG REPORT ---
SEVERITY:- BORDERLINE ECG - SINUS RHYTHM INFERIOR Q WAVES, PROBABLY NORMAL VARIATION : Confirmed by: Rakesh Shipman 07-Aug-2018 23:08:32
== END 2018-08-07 02:22 | disposition home or self-care (01) ==
LOC: ER 00:22
DX: O26.893 Other specified pregnancy related conditions, third trimester (principal); R07.9 Chest pain, unspecified; R42 Dizziness and giddiness; R10.9 Unspecified abdominal pain; Z3A.30 30 weeks gestation of pregnancy
CPT/HCPCS: 93005; 93010; 99283

== ENCOUNTER 2018-08-07 13:16 | Emergency (ER) | payer MEDICAID ==
[2018-08-07] MEDS ORDERED: NORMAL SALINE 1000 ML 1,000 ML IV ONE (15:05)
[2018-08-07] MEDS ORDERED: MECLIZINE HCL 25 MG TABLET PO ONE (15:07)
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
[2018-08-07 16:33] LABS: ABSOLUTE EOSINOPHILS # (AUTO) 0.1 10^3/uL (0.0-0.6); ABSOLUTE LYMPHOCYTES (AUTO) 1.7 10^3/uL (0.5-4.7); ABSOLUTE MONOCYTES (AUTO) 0.5 10^3/uL (0.1-1.4); ABSOLUTE NEUT (AUTO) 7.1 10^3/uL (1.7-8.2); BASOPHILS % (AUTO) 0.4 % (0-2); EOSINOPHILS % (AUTO) 0.7 % (0-6); HEMATOCRIT 35.6 % (36.0-47.0); HEMOGLOBIN 12.3 g/dL (12.0-15.5); LYMPHOCYTES % (AUTO) 18.2 % (13-45); MEAN CORPUSCULAR HEMOGLOBIN 29.5 pg (27.0-33.4); MEAN CORPUSCULAR HGB CONC 34.5 g/dL (32.0-36.0); MEAN CORPUSCULAR VOLUME 86 fl (80-97); MONOCYTES % (AUTO) 5.4 % (3-13); PLATELET COUNT 261 10^3/uL (150-450); RED BLOOD COUNT 4.17 10^6/uL (3.72-5.28); RED CELL DISTRIBUTION WIDTH 14.5 % (11.5-14.0); SEGMENTED NEUTROPHILS % (AUTO) 75.3 % (42-78); TOTAL CELLS COUNTED % (AUTO) 100 %; WHITE BLOOD COUNT 9.5 10^3/uL (4.0-10.5)
[2018-08-07 16:45] LABS: APPEARANCE,URINE CLEAR; BILIRUBIN,URINE NEGATIVE (NEGATIVE); COLOR,URINE YELLOW; GLUCOSE, URINE NEGATIVE (NEGATIVE); KETONES,URINE NEGATIVE (NEGATIVE); LEUKOCYTE ESTERASE,URINE NEGATIVE (NEGATIVE); NITRITE,URINE NEGATIVE (NEGATIVE); PROTEIN,URINE NEGATIVE (NEGATIVE); URINE SPECIFIC GRAVITY 1.014; UROBILINOGEN,URINE NEGATIVE mg/dL (<2.0)
[2018-08-07 16:59] LABS: ANION GAP 7 (5-19); BLOOD UREA NITROGEN 8 mg/dL (7-20); CALCIUM 9.1 mg/dL (8.4-10.2); CARBON DIOXIDE 23 mmol/L (22-30); CHLORIDE 107 mmol/L (98-107); GLUCOSE 79 mg/dL (75-110); POTASSIUM 4.3 mmol/L (3.6-5.0); SODIUM 136.9 mmol/L (137-145)
[2018-08-07 17:18] VITALS: BP 119/95
== END 2018-08-07 17:28 | disposition home or self-care (01) ==
LOC: ER 13:16
DX: R42 Dizziness and giddiness (principal); R11.0 Nausea
CPT/HCPCS: 99284; 96360; 36415; 85025; 80048; 81001; J7030

== ENCOUNTER 2018-11-14 12:08 | Inpatient (IN) | payer MEDICAID ==
[2018-11-14 13:22] LABS: APPEARANCE,URINE CLOUDY; BILIRUBIN,URINE NEGATIVE (NEGATIVE); COLOR,URINE YELLOW; GLUCOSE, URINE NEGATIVE (NEGATIVE); KETONES,URINE NEGATIVE (NEGATIVE); LEUKOCYTE ESTERASE,URINE TRACE (NEGATIVE); NITRITE,URINE NEGATIVE (NEGATIVE); PROTEIN,URINE NEGATIVE (NEGATIVE); URINE SPECIFIC GRAVITY 1.019
[2018-11-14 13:38] LABS: URINE AMPHETAMINES SCREEN NEGATIVE; URINE BARBITURATES SCREEN NEGATIVE; URINE BENZODIAZEPINES SCREEN NEGATIVE; URINE COCAINE SCREEN NEGATIVE; URINE MARIJUANA (THC) SCREEN NEGATIVE; URINE METHADONE SCREEN NEGATIVE; URINE PHENCYCLIDINE SCREEN NEGATIVE
[2018-11-14] MEDS ORDERED: OXYTOCIN/NORMAL SALINE 20 UNIT/1,000 ML RTUINJ ONE (14:12)
[2018-11-14] MEDS ORDERED: LIDOCAINE 1% INJ-PF (10 MG/ML) 30 ML SDV ONE (14:12)
[2018-11-14] MEDS ORDERED: MISOPROSTOL 0.2 MG TABLET ONE (14:13)
[2018-11-14] MEDS ORDERED: RINGERS SOLUTION,LACTATED 1,000 ML IV PRN (14:15)
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
[2018-11-14] MEDS ORDERED: MORPHINE SULFATE 10 MG/ML INJ IV ONE (15:16)
[2018-11-14 15:17] LABS: ABSOLUTE EOSINOPHILS # (AUTO) 0.1 10^3/uL (0.0-0.6); ABSOLUTE LYMPHOCYTES (AUTO) 1.2 10^3/uL (0.5-4.7); ABSOLUTE MONOCYTES (AUTO) 0.5 10^3/uL (0.1-1.4); ABSOLUTE NEUT (AUTO) 6.2 10^3/uL (1.7-8.2); BASOPHILS % (AUTO) 0.5 % (0-2); EOSINOPHILS % (AUTO) 0.7 % (0-6); HEMATOCRIT 35.2 % (36.0-47.0); LYMPHOCYTES % (AUTO) 15.4 % (13-45); MEAN CORPUSCULAR HGB CONC 34.1 g/dL (32.0-36.0); MEAN CORPUSCULAR VOLUME 79 fl (80-97); MONOCYTES % (AUTO) 5.9 % (3-13); PLATELET COUNT 181 10^3/uL (150-450); RED BLOOD COUNT 4.45 10^6/uL (3.72-5.28); RED CELL DISTRIBUTION WIDTH 15.8 % (11.5-14.0); SEGMENTED NEUTROPHILS % (AUTO) 77.5 % (42-78); TOTAL CELLS COUNTED % (AUTO) 100 %
[2018-11-14] MEDS ORDERED: MORPHINE SULFATE INJ PF 10 MG/10 ML SDV ONE (15:17)
[2018-11-14] MEDS ORDERED: EPHEDRINE SULFATE INJ 50 MG/1 ML AMPULE ONE (15:40)
[2018-11-14] MEDS ORDERED: LIDOCAINE 1.5%/EPINEPHRINE INJ 5 ML AMP ONE (15:41)
[2018-11-14] MEDS ORDERED: BUPIVACAINE HCL 0.25 % INJ/PF (2.5 MG/1 ML) 30 ML VIAL ONE (15:41)
[2018-11-14] MEDS ORDERED: FENTANYL/BUPIVACAINE/NS/PF 300 MCG/150 ML RTUINJ EPI ONE (15:41)
[2018-11-14] MEDS ORDERED: OXYTOCIN 10 UNIT/ML VIAL ONE (20:43)
[2018-11-14] MEDS ORDERED: ACETAMINOPHEN WITH CODEINE #3 TABLET PO PRN (20:57)
[2018-11-14] MEDS ORDERED: BENZOCAINE/MENTHOL AEROSOL SPRAY 56 ML TOP PRN (20:57)
[2018-11-14] MEDS ORDERED: OXYTOCIN/NORMAL SALINE 20 UNIT/1,000 ML RTUINJ IV PRN (20:57)
[2018-11-14] MEDS ORDERED: DIBUCAINE 1% OINTMENT 56 GM TP PRN (20:57)
[2018-11-14] MEDS ORDERED: DIPH/PERTUSS(ACELL)/TETANUS VAC/PF 0.5 ML SYR (>=10YO) IM PRN (20:57)
[2018-11-14] MEDS ORDERED: ZOLPIDEM TARTRATE 5 MG TABLET PO PRN (20:57)
--- NOTE | 2018-11-14 21:54 | Delivery Summary ---
Del Sum A-C Datetime Report Generated by CPN: 11/14/2018 21:54 DELIVERY PERSONNEL DELIVERY PERSONNEL: [id number] Delivery Doctor:: Britni Cherry MD Labor and Delivery Nurse:: Elsa Sullivan RN Labor and Delivery Nurse:: Gita Bay RN Deep Well Contractor/TRANSCRIPTIONIST: Jennifer Ingram, ST MATERNAL INFORMATION Delivery Anesthesia: Epidural Medications After Delivery: Pitocin Drip 20 Units/1000ml NSS; Cytotec 1000mcg Per Rectum/Vagina Estimated Blood Loss (ml): 600 Maternal Complications: Abruptio Placenta Provider Comments: of a viable female at 2040 w/ an OP presentation; APGARS 8, 9; no lacs; partial abruption LABOR SUMMARY EDC: 11/21/2018 00:00 No. Babies in Womb: 1 Attempted: No Labor Anesthesia: Epidural LABOR INFORMATION Reason for Induction: Not Applicable Onset of Labor: 11/14/2018 13:00 Complete Dilatation: 11/14/2018 18:50 Oxytocin: Augmentation Group B Beta Strep: negative Antibiotics # of Doses: none Steroids Given: None Reason Steroids Not Administered: Not Applicable MEMBRANES Membranes Rupture Method: Spontaneous Rupture of Membranes: 11/14/2018 13:00 Length of Rupture (hr): 7.67 Amniotic Fluid Color: Clear Amniotic Fluid Amount: Large Amniotic Fluid Odor: Normal STAGES OF LABOR Stage 1 hr: 5 Stage 1 min: 50 Stage 2 hr: 1 Stage 2 min: 50 Stage 3 hr: 0 Stage 3 min: 4 Total Time in Labor hr: 7 Total Time in Labor min: 44 VAGINAL DELIVERY Episiotomy: None Laceration #1: None Laceration Extension #1: N/A Laceration Repair: Not Applicable Sponge Count Correct: Yes Sharps Count Correct: N/A CSECTION DELIVERY Primary Indication: N/A Secondary Indication: N/A CSection Incidence: N/A Labor: N/A Elective: N/A CSection Incision: N/A BABY A INFORMATION Delivery Date/Time: 11/14/2018 20:40 Method of Delivery: Vaginal Born in Route : No : N/A Forceps: N/A Vacuum Extraction: N/A Shoulder Dystocia : No PRESENTATION/POSITION BABY A Presentation: Cephalic Cephalic Presentation: Vertex Vertex Position: Direct OP Breech Presentation: N/A PLACENTA INFORMATION BABY A Placenta Delivery Time : 11/14/2018 20:44 Placenta Method of Delivery: Spontaneous Placenta Status: Delivered SCORES BABY A Heart Rate 1 min: >100 bpm Resp Effort 1 min: Good Cry Reflex Irritability 1 min: Grimace Muscle Tone 1 min: Active Motion Color 1 min: Body [place], Extremities Blue SCORE 1 MIN: 8 Heart Rate 5 min: >100 bpm Resp Effort 5 min: Good Cry Reflex Irritability 5 min: Cough or Sneeze or Pulls Away Muscle Tone 5 min: Active Motion Color 5 min: Body [place], Extremities Blue SCORE 5 MIN: 9 INFANT INFORMATION BABY A Gestational Age at Delivery: 39.0 Gestational Status: Full Term- 39- 40.6 Weeks Infant Outcome : Liveborn Infant Condition : Stable Sex: Female IDENTIFICATION BABY A Infant Verification Date/Time: 11/14/2018 21:28 ID Band Number: [id number] Mother's Name Verified: Yes RN Verifying Infant: al sullivan rn. Al Godinez RN WEIGHT/LENGTH BABY A Birthweight (gm): 3066 Infant Weight (lb): 6 Infant Weight (oz): 12 Infant Length (in): 19.00 Infant Length (cm): 48.26 CORD INFORMATION BABY A Nuchal Cord : N/A Cord Blood Taken: Yes-For Storage (Mom's Blood type +) Suction: None ASSESSMENT BABY A Infant Complications: None Physical Findings at Delivery: Molding of the Head Infant Respirations: Appears Normal Skin to Skin: Yes Skin to Skin Time (min): 60 Care By: german Bay RN Transferred To: Remains with Mother BABY B INFORMATION : N/A SIGNATURES Signature: with User ID: [email or web address] : I was personally available for consultation and serving as supervising physician for the P.
[2018-11-14] MEDS: IBUPROFEN 800 MG TABLET PO SCH (23:48)
[2018-11-15] MEDS: IBUPROFEN 800 MG TABLET PO SCH ×4 (06:08→22:22)
[2018-11-15 07:35] LABS: HEMATOCRIT 28.8 % (36.0-47.0); MEAN CORPUSCULAR HEMOGLOBIN 27.6 pg (27.0-33.4); MEAN CORPUSCULAR HGB CONC 34.2 g/dL (32.0-36.0); MEAN CORPUSCULAR VOLUME 81 fl (80-97); PLATELET COUNT 182 10^3/uL (150-450); RED BLOOD COUNT 3.57 10^6/uL (3.72-5.28); RED CELL DISTRIBUTION WIDTH 15.8 % (11.5-14.0); WHITE BLOOD COUNT 9.9 10^3/uL (4.0-10.5)
[2018-11-15 07:49] LABS: HEMOGLOBIN 9.9 g/dL (12.0-15.5)
[2018-11-15] MEDS: ACETAMINOPHEN WITH CODEINE #3 TABLET PO PRN ×3 (08:37→18:36)
[2018-11-15] MEDS: SENNOSIDES/DOCUSATE 8.6-50 MG 1 EACH TABLET PO SCH (09:18)
[2018-11-15] MEDS: FERROUS SULFATE 325 MG TABLET PO SCH ×2 (09:19→18:37)
[2018-11-15] MEDS: PRENATAL VITAMIN W DHA CAPSULE PO SCH (09:19)
[2018-11-15] MEDS: DOCUSATE SODIUM 100 MG CAPSULE PO SCH ×2 (09:19→18:37)
--- NOTE | 2018-11-15 09:39 | PDOC PROGRESS REPORT ---
Subjective-OB Progress Note for:: 11/15/18 - PP Day #1, doing well, , no complaints, B+, Rubella Immune, Hx of PPH after delivery Physical Exam (OB) Vital Signs: Temp Pulse Resp BP Pulse Ox 97.5 F 58 L 16 102/66 99 11/15/18 07:47 11/15/18 07:47 11/15/18 07:47 11/15/18 07:47 11/15/18 07:47 Intake & Output 11/14/18 11/15/18 11/16/18 06:59 06:59 06:59 Weight 81.2 kg - General General Appearance: Appears well, Alert In distress: None - PIH/Pre-Eclampsia DTR's: 2 + Clonus: Negative Headache: Absent Epigastric Pain: No Visual Changes: No - Lochia Lochia Amount: Moderate 25-50 ml Lochia Color: Rubra/Red - Abdomen Description: Soft, Round Fundal Description: Firm Fundal Height: u/u - u/2 - Respiratory Respiratory Status: No respiratory distress - Abdominal Distension: No distension - Genitourinary Genitourinary Note: voiding - Extremities Upper extremity: Normal inspection Lower extremities: Normal inspection - Neurological Cognition: Normal Orientation: AAOx4 - Psychological Associated symptoms: Normal affect, Normal mood - Skin Skin Temperature: Warm Skin Moisture: Dry Objective-Diagnostic Laboratory: 11/15/18 06:40 11/14/18 11/14/18 11/14/18 12:48 15:00 15:00 WBC 8.0 RBC 4.45 Hgb 12.0 Hct 35.2 L MCV 79 L MCH 27.0 MCHC 34.1 RDW 15.8 H Plt Count 181 Seg Neutrophils % 77.5 Lymphocytes % 15.4 Monocytes % 5.9 Eosinophils % 0.7 Basophils % 0.5 Absolute Neutrophils 6.2 Absolute Lymphocytes 1.2 Absolute Monocytes 0.5 Absolute Eosinophils 0.1 Absolute Basophils 0.0 Urine Color YELLOW Urine Appearance CLOUDY Urine pH 6.0 Ur Specific [place] 1.019 Urine Protein NEGATIVE Urine Glucose (UA) NEGATIVE Urine Ketones NEGATIVE Urine Blood NEGATIVE Urine Nitrite NEGATIVE Ur Leukocyte Esterase TRACE H Blood Type B POSITIVE Antibody Screen NEGATIVE 11/15/18 06:40 WBC 9.9 RBC 3.57 L Hgb 9.9 L D Hct 28.8 L MCV 81 MCH 27.6 MCHC 34.2 RDW 15.8 H Plt Count 182 Seg Neutrophils % Lymphocytes % Monocytes % Eosinophils % Basophils % Absolute Neutrophils Absolute Lymphocytes Absolute Monocytes Absolute Eosinophils Absolute Basophils Urine Color Urine Appearance Urine pH Ur Specific [place] Urine Protein Urine Glucose (UA) Urine Ketones Urine Blood Urine Nitrite Ur Leukocyte Esterase Blood Type Antibody Screen Assessment and Plan(PN) - Assessment and Plan (1) PPH ( hemorrhage) Qualifiers: hemorrhage type: other immediate Qualified Code(s): O72.1 - Other immediate hemorrhage Is this a current diagnosis for this admission?: Yes (2) (normal spontaneous vaginal delivery) Is this a current diagnosis for this admission?: Yes (3) Acute blood loss anemia Is this a current diagnosis for this admission?: Yes - Time Spent with Patient Time with patient: Less than 15 minutes Medications reviewed and adjusted accordingly: Yes - Disposition Anticipated Discharge: Home Within: within 24 hours
[2018-11-15] MEDS ORDERED: SODIUM CHLORIDE NASAL SPRAY 44 ML NASL PRN (12:00)
[2018-11-16] MEDS: ACETAMINOPHEN WITH CODEINE #3 TABLET PO PRN (04:31)
[2018-11-16] MEDS: IBUPROFEN 800 MG TABLET PO SCH (05:14)
[2018-11-16 08:10] VITALS: BP 98/53
--- NOTE | 2018-11-16 09:21 | PDOC DISCHARGE SUMMARY ---
Final Diagnosis Discharge Date: 11/16/18 - PP day #2, doing well, c/o nasal congestion. , hx PPH, no dizziness - Final Diagnosis (1) PPH ( hemorrhage) Is this a current diagnosis for this admission?: Yes (2) (normal spontaneous vaginal delivery) Is this a current diagnosis for this admission?: Yes (3) Acute blood loss anemia Is this a current diagnosis for this admission?: Yes Discharge Data - Discharge Medication Prescriptions: Ibuprofen [Motrin 800 mg Tablet] 800 mg PO Q8 #60 tablet Home Medications: No.137/Iron/Folic Acd [ Vitamin Tablet] 1 tab PO DAILY 03/05/14 Ibuprofen [Motrin 800 mg Tablet] 800 mg PO Q8 #60 tablet 11/16/18 Reason(s) for Admission: Onset of Labor Intrapartum Procedure(s): Spontaneous Vaginal Delivery Complication(s): Hemorrhage-Uterine Atony - Diagnosis Test Laboratory: Temp Pulse Resp BP Pulse Ox 97.6 F 83 16 121/46 L 97 11/16/18 07:54 11/16/18 07:54 11/16/18 07:54 11/16/18 07:54 11/16/18 07:54 11/14/18 11/14/18 11/15/18 12:48 15:00 06:40 RBC 4.45 3.57 L Hgb 12.0 9.9 L D Hct 35.2 L 28.8 L Urine Opiates Screen NEGATIVE - Discharge information/Instructions Discharge Activity: Balance Activity w/Rest, No Lifting Over 10 Pounds, No Lifting/Push/Pulling, Pelvic Rest, No tub bath Discharge Diet: As Tolerated, Regular Disposition: HOME, SELF-CARE Follow up with: [facility] in: 4, Weeks
[2018-11-16] MEDS: DOCUSATE SODIUM 100 MG CAPSULE PO SCH (10:33)
[2018-11-16] MEDS: FERROUS SULFATE 325 MG TABLET PO SCH (10:33)
[2018-11-16] MEDS: SENNOSIDES/DOCUSATE 8.6-50 MG 1 EACH TABLET PO SCH (10:33)
[2018-11-16] MEDS: PRENATAL VITAMIN W DHA CAPSULE PO SCH (10:33)
== END 2018-11-16 14:50 | disposition home or self-care (01) | DRG 806 ==
LOC: LC 12:08 → LR 13:03 → 2S 23:07
PROVIDERS: ADMIT Obstetrics & Gynecology; ATTEND Obstetrics & Gynecology
PROC: 10E0XZZ Delivery of Products of Conception, External Approach (ICD-10-PCS; principal; 2018-11-14)
DX: O45.93 Premature separation of placenta, unspecified, third trimester (principal); O72.1 Other immediate postpartum hemorrhage; Z37.0 Single live birth; D62 Acute posthemorrhagic anemia; O36.8130 Decreased fetal movements, third trimester, not applicable or unspecified; O13.4 Gestational [pregnancy-induced] hypertension without significant proteinuria, complicating childbirth; O90.81 Anemia of the puerperium; Z3A.39 39 weeks gestation of pregnancy
CPT/HCPCS: 36415; 80307; 81005; 85025; 85027; 86850; 86900; 86901; 88307; J2274; J2590; J3010; J3490

== ENCOUNTER 2019-06-19 14:11 | Emergency (ER) | payer MEDICAID ==
[2019-06-19] MEDS ORDERED: NORMAL SALINE 1000 ML 1,000 ML IV ONE (15:30)
[2019-06-19 16:20] LABS: ABSOLUTE LYMPHOCYTES (AUTO) 0.8 10^3/uL (0.5-4.7); ABSOLUTE MONOCYTES (AUTO) 0.3 10^3/uL (0.1-1.4); ABSOLUTE NEUT (AUTO) 6.2 10^3/uL (1.7-8.2); BASOPHILS % (AUTO) 0.3 % (0-2); EOSINOPHILS % (AUTO) 0.4 % (0-6); HEMATOCRIT 37.6 % (36.0-47.0); HEMOGLOBIN 13.3 g/dL (12.0-15.5); LYMPHOCYTES % (AUTO) 10.4 % (13-45); MEAN CORPUSCULAR HEMOGLOBIN 29.7 pg (27.0-33.4); MEAN CORPUSCULAR HGB CONC 35.3 g/dL (32.0-36.0); MEAN CORPUSCULAR VOLUME 84 fl (80-97); MONOCYTES % (AUTO) 4.3 % (3-13); PLATELET COUNT 205 10^3/uL (150-450); RED BLOOD COUNT 4.47 10^6/uL (3.72-5.28); RED CELL DISTRIBUTION WIDTH 13.7 % (11.5-14.0); SEGMENTED NEUTROPHILS % (AUTO) 84.6 % (42-78); TOTAL CELLS COUNTED % (AUTO) 100 %; WHITE BLOOD COUNT 7.4 10^3/uL (4.0-10.5)
[2019-06-19 16:38] LABS: ALKALINE PHOSPHATASE 66 U/L (38-126); ANION GAP 11 (5-19); APPEARANCE,URINE SLIGHTLY-CLOUDY; ASPARTATE AMINO TRANSFERASE 18 U/L (14-36); BILIRUBIN,DIRECT 0.1 mg/dL (0.0-0.4); BILIRUBIN,TOTAL 0.6 mg/dL (0.2-1.3); BILIRUBIN,URINE NEGATIVE (NEGATIVE); BLOOD UREA NITROGEN 7 mg/dL (7-20); CALCIUM 8.9 mg/dL (8.4-10.2); CARBON DIOXIDE 25 mmol/L (22-30); CHLORIDE 100 mmol/L (98-107); COLOR,URINE YELLOW; GLUCOSE 102 mg/dL (75-110); GLUCOSE, URINE NEGATIVE (NEGATIVE); KETONES,URINE NEGATIVE (NEGATIVE); LEUKOCYTE ESTERASE,URINE NEGATIVE (NEGATIVE); NITRITE,URINE NEGATIVE (NEGATIVE); POTASSIUM 3.6 mmol/L (3.6-5.0); PROTEIN,URINE NEGATIVE (NEGATIVE); TOTAL PROTEIN 7.2 g/dL (6.3-8.2); URINE SPECIFIC GRAVITY 1.016
--- NOTE | 2019-06-19 16:46 | ER Document Report ---
ED Medical Screen (RME) - General Chief Complaint: Vomiting Stated Complaint: VOMITING Time Seen by Provider: 06/19/19 15:27 Primary Care Provider: KIA POWELL DO [Primary Care Provider] - Follow up as needed TRAVEL OUTSIDE OF THE [place] IN LAST 30 DAYS: No - HPI Notes: 06/19/19 16:59 33-year-old female para 6 5, 21 weeks presents to the emergency room for generalized weakness, nausea and vomiting with lower back pain that started yesterday. Patient was concerned about dehydration. 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 Denies any fevers or chills. States she is around sick contacts. Denies getting a flu shot. Denies any vaginal bleeding, pelvic pain. Denies any chest pain shortness of breath. I have greeted and performed a rapid initial assessment of this patient. A comprehensive ED assessment and evaluation of the patient, analysis of test results and completion of the medical decision making process will be conducted by additional ED providers. PHYSICAL EXAMINATION: GENERAL: Well-appearing, well-nourished and in no acute distress. HEAD: Atraumatic, normocephalic. EYES: Pupils equal round extraocular movements intact, conjunctiva are normal. NECK: Normal range of motion CV: s1, s2 regular LUNGS: No respiratory distress Musculoskeletal: Normal range of motion NEUROLOGICAL: Normal speech, normal gait. SKIN: Warm, Dry, normal turgor, no rashes or lesions noted. - Related Data Allergies/Adverse Reactions: No Known Allergies Allergy (Verified 06/19/19 15:23) Past Medical History Renal/ Medical History: Denies: Hx Peritoneal Dialysis Past Surgical History: Reports: Hx Genitourinary Surgery - , Hx Gynecologic Surgery - - Immunizations Hx Diphtheria, Pertussis, Tetanus Vaccination: Yes - Mar 2014 Physical Exam - Vital signs Vitals: Temp Pulse Resp BP Pulse Ox 97.7 F 86 18 117/51 L 99 06/19/19 15:24 06/19/19 15:24 06/19/19 15:24 06/19/19 15:24 06/19/19 15:24 Course - Vital Signs Vital signs: Temp Pulse Resp BP Pulse Ox 97.7 F 86 18 117/51 L 99 06/19/19 15:24 06/19/19 15:24 06/19/19 15:24 06/19/19 15:24 06/19/19 15:24 - Laboratory Result Diagrams: 06/19/19 15:53 06/19/19 15:53 Laboratory results interpreted by me: 06/19/19 06/19/19 06/19/19 15:53 15:53 15:53 Lymph % (Auto) 10.4 L Seg Neutrophils % 84.6 H Sodium 135.9 L Creatinine 0.37 L Beta HCG, Quant 87618.00 H Urine Blood SMALL H Urine Urobilinogen 4.0 H Doctor's Discharge - Discharge Referrals: KIA POWELL DO [Primary Care Provider] - Follow up as needed
[2019-06-19] MEDS ORDERED: ONDANSETRON 4 MG TAB.RAPDIS PO ONE (17:44)
[2019-06-19 18:34] VITALS: BP 118/64
== END 2019-06-19 18:37 | disposition home or self-care (01) ==
LOC: ER 14:11
DX: O21.2 Late vomiting of pregnancy (principal); R53.1 Weakness; Z3A.21 21 weeks gestation of pregnancy
CPT/HCPCS: 99284; 96360; 36415; 82962; 84702; 83690; 85025; 80053; 81001; S0119; J7030

== ENCOUNTER 2019-10-12 17:21 | Outpatient (CLI) | payer MEDICAID ==
[2019-10-12 18:28] LABS: APPEARANCE,URINE SLIGHTLY-CLOUDY; BILIRUBIN,URINE NEGATIVE (NEGATIVE); COLOR,URINE YELLOW; GLUCOSE, URINE NEGATIVE (NEGATIVE); KETONES,URINE NEGATIVE (NEGATIVE); LEUKOCYTE ESTERASE,URINE TRACE (NEGATIVE); NITRITE,URINE NEGATIVE (NEGATIVE); PROTEIN,URINE NEGATIVE (NEGATIVE); URINE SPECIFIC GRAVITY 1.017; UROBILINOGEN,URINE NEGATIVE mg/dL (<2.0)
[2019-10-12 18:43] LABS: URINE AMPHETAMINES SCREEN NEGATIVE; URINE BARBITURATES SCREEN NEGATIVE; URINE BENZODIAZEPINES SCREEN NEGATIVE; URINE COCAINE SCREEN NEGATIVE; URINE MARIJUANA (THC) SCREEN NEGATIVE; URINE METHADONE SCREEN NEGATIVE; URINE PHENCYCLIDINE SCREEN NEGATIVE
[2019-10-12] MEDS ORDERED: HYDROXYZINE PAMOATE 50 MG CAPSULE PO ONE (18:49)
[2019-10-12] MEDS ORDERED: HYDROXYZINE PAMOATE 50 MG CAPSULE ONE (18:49)
--- NOTE | 2019-10-12 19:08 | Non Stress Test Report ---
Non Stress Test Datetime Report Generated by CPN: 10/12/2019 19:07 DEMOGRAPHIC Test Number: 1 EGA NST: 37.5 INDICATION Indication for Study (NST) Other: contractions MONITORING Monitor Explained: Monitor Explained; Test Explained; Patient Verbalized Understanding Time on Monitor: 10/12/2019 17:48 Time off Monitor: 10/12/2019 18:45 NST Duration: 57 NST INTERVENTIONS NST Interventions: PO Hydration Physician Notified NST: Dr. Emmanuel BABY A: [id number] BABY A Movement : Present Contraction Frequency : 2-4 FHR Baseline : 150 Accelerations : 15X15 Decelerations : Early; Late Variability : Moderate 6-25bpm NST Review: Meets Criteria for Reactive NST NST Review and Verified By : Al Godinez RN NST Results: Reactive NST REPORT Report Trigger: Send Report
== END 2019-10-12 19:06 | disposition home or self-care (01) ==
LOC: LC 17:21
PROVIDERS: ATTEND Obstetrics & Gynecology
DX: O47.1 False labor at or after 37 completed weeks of gestation (principal); Z3A.37 37 weeks gestation of pregnancy
CPT/HCPCS: 80307; 81005

== ENCOUNTER 2019-10-27 18:27 | Inpatient (IN) | payer MEDICAID ==
[2019-10-27 19:01] LABS: APPEARANCE,URINE CLOUDY; BILIRUBIN,URINE NEGATIVE (NEGATIVE); COLOR,URINE YELLOW; GLUCOSE, URINE 50 mg/dL (NEGATIVE); KETONES,URINE TRACE mg/dL (NEGATIVE); LEUKOCYTE ESTERASE,URINE NEGATIVE (NEGATIVE); NITRITE,URINE NEGATIVE (NEGATIVE); PROTEIN,URINE 30 mg/dL (NEGATIVE); URINE SPECIFIC GRAVITY 1.031
[2019-10-27] MEDS ORDERED: RINGERS SOLUTION,LACTATED 1,000 ML IV ONE (19:05)
[2019-10-27] MEDS ORDERED: PENICILLIN G POTASSIUM 5,000,000 UNIT in DEXTROSE 5%-WATER 100 ML IV ONE (19:05)
[2019-10-27] MEDS ORDERED: RINGERS SOLUTION,LACTATED 1,000 ML IV PRN (19:05)
[2019-10-27] MEDS ORDERED: PENICILLIN G-K 5 MILLION UNIT VIAL ONE ×2 (19:12→23:45)
[2019-10-27 19:20] LABS: URINE AMPHETAMINES SCREEN NEGATIVE; URINE BARBITURATES SCREEN NEGATIVE; URINE BENZODIAZEPINES SCREEN NEGATIVE; URINE COCAINE SCREEN NEGATIVE; URINE MARIJUANA (THC) SCREEN NEGATIVE; URINE METHADONE SCREEN NEGATIVE; URINE PHENCYCLIDINE SCREEN NEGATIVE
[2019-10-27 20:20] LABS: ABSOLUTE BASOPHILS # (AUTO) 0.1 10^3/uL (0.0-0.2); ABSOLUTE LYMPHOCYTES (AUTO) 1.7 10^3/uL (0.5-4.7); ABSOLUTE MONOCYTES (AUTO) 0.7 10^3/uL (0.1-1.4); ABSOLUTE NEUT (AUTO) 7.7 10^3/uL (1.7-8.2); BASOPHILS % (AUTO) 0.6 % (0-2); EOSINOPHILS % (AUTO) 0.5 % (0-6); HEMATOCRIT 38.9 % (36.0-47.0); MEAN CORPUSCULAR HEMOGLOBIN 30.1 pg (27.0-33.4); MEAN CORPUSCULAR HGB CONC 36.1 g/dL (32.0-36.0); MEAN CORPUSCULAR VOLUME 83 fl (80-97); MONOCYTES % (AUTO) 6.4 % (3-13); PLATELET COUNT 185 10^3/uL (150-450); RED BLOOD COUNT 4.66 10^6/uL (3.72-5.28); RED CELL DISTRIBUTION WIDTH 16.2 % (11.5-14.0); SEGMENTED NEUTROPHILS % (AUTO) 75.5 % (42-78); TOTAL CELLS COUNTED % (AUTO) 100 %; WHITE BLOOD COUNT 10.2 10^3/uL (4.0-10.5)
[2019-10-27] MEDS ORDERED: LIDOCAINE 1% INJ-PF (10 MG/ML) 30 ML SDV ONE (20:33)
[2019-10-27] MEDS ORDERED: MISOPROSTOL 0.2 MG TABLET ONE (20:33)
[2019-10-27] MEDS ORDERED: OXYTOCIN 10 UNIT/ML VIAL ONE (20:33)
[2019-10-27] MEDS ORDERED: OXYTOCIN/NORMAL SALINE 20 UNIT/1,000 ML RTUINJ ONE (20:34)
[2019-10-27] MEDS ORDERED: BUPIVACAINE HCL 0.25 % INJ/PF (2.5 MG/1 ML) 30 ML VIAL ONE (20:43)
[2019-10-27] MEDS ORDERED: EPHEDRINE SULFATE INJ 50 MG/1 ML AMPULE ONE (20:43)
[2019-10-27] MEDS ORDERED: FENTANYL/BUPIVACAINE/NS/PF 0 MCG/0 ML RTUINJ EPI ONE (20:44)
--- NOTE | 2019-10-27 21:51 | Admission Physical ---
Datetime Report Generated by CPN: 10/27/2019 21:51 CURRENT ADMISSION Chief Complaint: Uterine Contractions Indication for Induction: Other Indication for Induction- Other: favorable cervix, GBS positive, Grand multip Admit Impression : Term, Intrauterine ; No Active Labor Admit Impression- Other: Early acitve labor Admit Plan: Admit to Unit; Initiate Labor Induction Protocol ALLERGIES Medication Allergies: No Medication Allergies: No Known Allergies (06/19/2019) Latex: No Latex Allergies OBSTETRICAL HISTORY EDC: 10/28/2019 00:00 : 8 Para: 6 Term: 6 : 0 SAB: 1 Livin Gestational Diabetes: No Rh Sensitization: No Incompetent Cervix: No FLOYD: No Infertility: No ART Treatment: No Uterine Anomaly: No IUGR: No Hx Previous C/S: No Macrosomia: No Hx Loss/Stillborn: No PIH: No Hx : No Placenta Previa/Abruption: No Depression/PP Depression: No PTL/PROM: No Post Hemorrhage: No Current Procedures: Ultrasound Obstetrical History Comments: G1- 2002, term G2- 2004, term G3- 2007, term G4- 2009, term G5- SAB G6- 2014, term G7- 2018, term G8- current SEE RECORDS Alcohol: No Marijuana : No Cocaine: No Other Illicit Drugs: No Cigarettes: Former Smoker. [id number] MEDICAL HISTORY Diabetes: No Blood Transfusion: No Pulmonary Disease (Asthma, TB): No Breast Disease: No Hypertension: No Typewriter Tester Surgery: No Heart Disease: No Hosp/Surgery: No Autoimmune Disorder: No Anesthetic Complications: No Kidney Disease: No Abnormal Pap Smear: No Neuro/Epilepsy: No Psychiatric Disorders: No Other Medical Diseases: No Hepatitis/Liver Disease: No Significant Family History: No Varicosities/Phlebitis: No Trauma/Violence : No Thyroid Dysfunction: No INFECTIOUS HISTORY Gonorrhea: No Genital Herpes: No Chlamydia: No Tuberculosis: No Syphilis: No Hepatitis: No HIV/AIDS Exposure: No Rash or Viral Illness: No HPV: No PHYSICAL EXAM General: Normal HEENT: Normal Neurologic: Normal Thyroid: Deferred Heart: Normal Lungs: Normal Breast: Deferred Back: Normal Abdomen: Normal Genitourinary Exam: Normal Extremities: Normal DTRs: Normal Pelvic Type: Adequate Vital Signs: Reviewed VAGINAL EXAM Dilatation: 3 Effacement: 90 Station: -1 Contraction Comments: irreg MEMBRANES Membranes: Intact FETUS A EGA: 39.6 Monitoring: External US FHR- Baseline: 145 Variability: Moderate 6-25bpm Accelerations: 15X15 Decelerations: None FHR Category: Category I Presentation: Vertex Admit Comment: 34yo at 39+6ega presents with irregular uterine contractions and advanced dilation. Grand multip and GBS positive. Plan for PCN then AROM and pitocin. [facility] transfer at 22wks. Short interval - last delivered 10/2018. Admit to labor and delivery and anticipate . service planner placed. FOB left her and she is now single mother per notes. 1st two children given up for adoption. PLANS FOR LABOR AND DELIVERY Labor and Delivery: Plan Pain Management: Natural Feeding Preference: Breast Benefit of Breast Feed Discussed: Yes Circumcision: N/A INFORMED CONSENT Informed Consent Obtained: Vaginal Delivery; Induction of Labor; Risks, Benefits and Alternatives Discussed Signature: with User ID: [email or web address]
[2019-10-28] MEDS: PENICILLIN G POTASSIUM 2,500,000 UNIT in DEXTROSE 5%-WATER 50 ML IV SCH ×2 (00:11→04:15)
[2019-10-28] MEDS ORDERED: OXYTOCIN/NORMAL SALINE 20 UNIT/1,000 ML RTUINJ IV PRN ×2 (00:29→06:49)
[2019-10-28] MEDS ORDERED: PENICILLIN G-K 5 MILLION UNIT VIAL ONE (04:08)
[2019-10-28] MEDS ORDERED: DIPHENHYDRAMINE HCL 25 MG CAPSULE PO PRN (06:49)
[2019-10-28] MEDS ORDERED: MAGNESIUM HYDROXIDE SUSP 30 ML UDCUP PO PRN (06:49)
[2019-10-28] MEDS ORDERED: NA PHOS,M-B/NA PHOS,DI-BA (ADULT) 133 ML ENEMA PR PRN (06:49)
[2019-10-28] MEDS ORDERED: PROMETHAZINE HCL 25 MG SUPP.RECT PR PRN (06:49)
[2019-10-28] MEDS ORDERED: MISOPROSTOL 0.2 MG TABLET PR PRN (06:49)
[2019-10-28] MEDS ORDERED: PSEUDOEPHEDRINE HCL 30 MG TABLET PO PRN (06:49)
[2019-10-28] MEDS ORDERED: BENZOCAINE/MENTHOL AEROSOL SPRAY 56 ML TOP PRN (06:49)
[2019-10-28] MEDS ORDERED: DIPH/PERTUSS(ACELL)/TETANUS VAC/PF 0.5 ML SYR (>=10YO) IM PRN (06:49)
[2019-10-28] MEDS ORDERED: ZOLPIDEM TARTRATE 5 MG TABLET PO PRN (06:49)
[2019-10-28] MEDS ORDERED: ACETAMINOPHEN WITH CODEINE #3 TABLET PO PRN (06:49)
[2019-10-28] MEDS ORDERED: GLYCERIN/WITCH HAZEL LEAF 1 EACH MED..WIPE TP PRN (06:49)
[2019-10-28] MEDS ORDERED: DIBUCAINE 1% OINTMENT 28 GM TP PRN (06:49)
[2019-10-28] MEDS ORDERED: ACETAMINOPHEN 325 MG TABLET PO PRN (06:49)
[2019-10-28] MEDS ORDERED: MEASLES,MUMPS&RUBELLA VACC/PF 0.5 ML VIAL SUBCUT PRN (06:49)
[2019-10-28] MEDS ORDERED: PROMETHAZINE HCL INJ 25 MG/1 ML VIAL IV PRN (06:49)
[2019-10-28] MEDS ORDERED: PROMETHAZINE HCL 25 MG TABLET PO PRN (06:49)
[2019-10-28] MEDS ORDERED: ACETAMINOPHEN WITH CODEINE #3 TABLET ONE (06:55)
--- NOTE | 2019-10-28 08:09 | Delivery Summary ---
Del Sum A-C Datetime Report Generated by CPN: 10/28/2019 08:09 DELIVERY PERSONNEL DELIVERY PERSONNEL: [id number] Delivery Doctor:: Che Tolbert MD Labor and Delivery Nurse:: Елена Banuelos RNdry transfer worker Nurse:: ALEAH Vickers Color Coater/MACHINE CAGE MAKER: Jennifer Juan Jose, ST MATERNAL INFORMATION Delivery Anesthesia: None Medications After Delivery: Pitocin Bolus-Please Comment Meds After Delivery Comment: Pitocin 20 units Estimated Blood Loss (ml): 50 Delivery QBL: 50 Maternal Complications: Precipitous Labor (<3hrs) Provider Comments: [facility] delivered in VICK[place] presentation with compound right hand. Shoulders and body delivered without difficulty. Cord doubly clamped and cut and infant to maternal abdomen. Placenta delivered intact spontaneously. FF at U. No perineal lacerations. Cytotec 1000mcg placed per rectum due to grand multip. Mother and baby stable upon provider leaving the room. LABOR SUMMARY EDC: 10/28/2019 00:00 No. Babies in Womb: 1 Attempted: No Labor Anesthesia: None LABOR INFORMATION Reason for Induction: Other Reason for Induction- Other: multigravida with advanced dilation Onset of Labor: 10/28/2019 05:47 Complete Dilatation: 10/28/2019 06:30 Oxytocin: Induction Group B Beta Strep: positive Antibiotics # of Doses: 3 Antibiotics Time of Last Dose: 0415 Name of Antibiotic Given: Pencillin G Steroids Given: None Reason Steroids Not Administered: Not Applicable MEMBRANES Membranes Rupture Method: Artificial Rupture of Membranes: 10/28/2019 05:47 Length of Rupture (hr): 0.78 Amniotic Fluid Color: Clear Amniotic Fluid Amount: Small Amniotic Fluid Odor: Normal STAGES OF LABOR Stage 1 hr: 0 Stage 1 min: 43 Stage 2 hr: 0 Stage 2 min: 4 Stage 3 hr: 0 Stage 3 min: 3 Total Time in Labor hr: 0 Total Time in Labor min: 50 VAGINAL DELIVERY Episiotomy: None Laceration #1: None Laceration Extension #1: N/A Laceration Repair: Not Applicable Sponge Count Correct: Yes Sharps Count Correct: Yes CSECTION DELIVERY Primary Indication: N/A Secondary Indication: N/A CSection Incidence: N/A Labor: N/A Elective: N/A CSection Incision: N/A BABY A INFORMATION Infant Delivery Date/Time: 10/28/2019 06:34 Method of Delivery: Vaginal Nurse Controlled Delivery: No Born in Route : No : N/A Forceps: N/A Vacuum Extraction: N/A Shoulder Dystocia : No PRESENTATION/POSITION BABY A Presentation: Cephalic Cephalic Presentation: Vertex Vertex Position: Right Occipital Anterior Breech Presentation: N/A PLACENTA INFORMATION BABY A Placenta Delivery Time : 10/28/2019 06:37 Placenta Method of Delivery: Spontaneous Placenta Status: Delivered SCORES BABY A Heart Rate 1 min: >100 bpm Resp Effort 1 min: Good Cry Reflex Irritability 1 min: Cough or Sneeze or Pulls Away Muscle Tone 1 min: Active Motion Color 1 min: Body [place], Extremities Blue Resuscitation Effort 1 min: Tactile Stimulation SCORE 1 MIN: 9 Heart Rate 5 min: >100 bpm Resp Effort 5 min: Good Cry Reflex Irritability 5 min: Cough or Sneeze or Pulls Away Muscle Tone 5 min: Active Motion Color 5 min: Body [place], Extremities Blue Resuscitation Effort 5 min: Tactile Stimulation SCORE 5 MIN: 9 INFANT INFORMATION BABY A Gestational Age at Delivery: 40.0 Gestational Status: Full Term- 39- 40.6 Weeks Outcome : Liveborn Condition : Stable Sex: Female IDENTIFICATION BABY A Infant Verification Date/Time: 10/28/2019 07:06 ID Band Number: [id number] Mother's Name Verified: Yes Infant RN Verifying Infant: MMarco Antonio Banuelos, RN and H. Smith, RN WEIGHT/LENGTH BABY A Birthweight (gm): 3346 Weight (lb): 7 Infant Weight (oz): 6 Infant Length (in): 21.00 Infant Length (cm): 53.34 CORD INFORMATION BABY A No. Cord Vessels: 3 Nuchal Cord : N/A Cord Blood Taken: Yes-For Storage (Mom's Blood type +) Suction: None ASSESSMENT BABY A Complications: None Physical Findings at Delivery: Within Normal Limits Infant Respirations: Appears Normal Skin to Skin: Yes Fitness Specialist/ALS Called : No Infant Care By: D. Normance, RNC Transferred To: Remains with Mother BABY B INFORMATION : N/A SIGNATURES Signature: with User ID: [email or web address]
--- NOTE | 2019-10-28 10:03 | Warning Signs in Babies ---
VOD Warning Signs Datetime Report Generated by [facility]: 10/28/2019 10:03 VOD#608 -Warning Signs in Babies: Needs to be viewed. (10/12/2019 17:26:April Mcmanus RN)
[2019-10-28] MEDS ORDERED: FAMOTIDINE 20 MG TABLET ONE (10:11)
[2019-10-28] MEDS ORDERED: SENNOSIDES/DOCUSATE 8.6-50 MG 1 EACH TABLET ONE (10:11)
[2019-10-28] MEDS ORDERED: PRENATAL VITAMIN W DHA CAPSULE PO ONE (10:11)
[2019-10-28] MEDS ORDERED: FERROUS SULFATE 325 MG TABLET PO ONE (10:11)
[2019-10-28] MEDS ORDERED: DOCUSATE SODIUM 100 MG CAPSULE ONE (10:11)
[2019-10-28] MEDS: SENNOSIDES/DOCUSATE 8.6-50 MG 1 EACH TABLET PO SCH (10:16)
[2019-10-28] MEDS: DOCUSATE SODIUM 100 MG CAPSULE PO SCH ×2 (10:16→17:47)
[2019-10-28] MEDS: FERROUS SULFATE 325 MG TABLET PO SCH ×2 (10:16→17:47)
[2019-10-28] MEDS: PRENATAL VITAMIN W DHA CAPSULE PO SCH (10:16)
[2019-10-28] MEDS: FAMOTIDINE 20 MG TABLET PO SCH ×2 (10:16→22:43)
[2019-10-28] MEDS: ACETAMINOPHEN WITH CODEINE #3 TABLET PO PRN (11:04)
[2019-10-28] MEDS: IBUPROFEN 800 MG TABLET PO SCH ×2 (14:58→22:42)
[2019-10-29] MEDS: ACETAMINOPHEN WITH CODEINE #3 TABLET PO PRN ×4 (04:28→21:18)
[2019-10-29] MEDS: IBUPROFEN 800 MG TABLET PO SCH ×3 (05:16→21:18)
[2019-10-29 06:53] LABS: HEMATOCRIT 37.3 % (36.0-47.0); HEMOGLOBIN 13.2 g/dL (12.0-15.5); MEAN CORPUSCULAR HGB CONC 35.3 g/dL (32.0-36.0); MEAN CORPUSCULAR VOLUME 85 fl (80-97); PLATELET COUNT 178 10^3/uL (150-450); RED CELL DISTRIBUTION WIDTH 16.8 % (11.5-14.0); WHITE BLOOD COUNT 8.7 10^3/uL (4.0-10.5)
[2019-10-29] MEDS: FAMOTIDINE 20 MG TABLET PO SCH ×2 (09:34→21:18)
[2019-10-29] MEDS: SENNOSIDES/DOCUSATE 8.6-50 MG 1 EACH TABLET PO SCH (09:34)
[2019-10-29] MEDS: PRENATAL VITAMIN W DHA CAPSULE PO SCH (09:35)
[2019-10-29] MEDS: DOCUSATE SODIUM 100 MG CAPSULE PO SCH ×2 (09:35→17:49)
[2019-10-29] MEDS: FERROUS SULFATE 325 MG TABLET PO SCH ×2 (09:35→17:49)
--- NOTE | 2019-10-29 11:19 | PDOC PROGRESS REPORT ---
Subjective-OB Progress Note for:: 10/29/19 Subjective: 34yo G8 now P7 s/p ppd 1. Pt ambulating, voiding and without difficulty. Reports pain well controlled with medication, no concerns today Physical Exam (OB) Vital Signs: Temp Pulse Resp BP Pulse Ox 98.4 F 63 16 114/59 L 100 10/29/19 07:51 10/29/19 07:51 10/29/19 07:51 10/29/19 07:51 10/29/19 07:51 Intake & Output 10/28/19 10/29/19 10/30/19 06:59 06:59 06:59 Intake Total 550 300 Output Total 250 Balance 300 300 Weight 86 kg - General General Appearance: Appears well In distress: None - PIH/Pre-Eclampsia DTR's: 1 + Clonus: Negative Headache: Absent Epigastric Pain: No Visual Changes: No - Episiotomy/Laceration Site Condition: N/A - Lochia Lochia Amount: Scant < 10 ml Lochia Color: Rubra/Red - Abdomen Description: Soft, Round Hernia Present: No Fundal Description: Firm, Midline Fundal Height: u/u - u/2 - Respiratory Respiratory Status: No respiratory distress - Extremities Upper extremity: Normal inspection Lower extremities: Normal inspection - Neurological Cognition: Normal Orientation: AAOx4 - Psychological Associated symptoms: Normal affect, Normal mood Objective-Diagnostic Laboratory: 10/29/19 06:33 10/29/19 06:33 WBC 8.7 RBC 4.40 Hgb 13.2 Hct 37.3 MCV 85 MCH 30.0 MCHC 35.3 RDW 16.8 H Plt Count 178 Assessment and Plan(PN) - Assessment and Plan (1) Vaginal delivery Is this a current diagnosis for this admission?: Yes Plan: Routine pp care (2) Carrier or suspected carrier of group B Streptococcus Is this a current diagnosis for this admission?: Yes Plan: treated x3 doses, delivered (3) Precipitous delivery Is this a current diagnosis for this admission?: Yes Plan: delivered (4) Poor social situation Is this a current diagnosis for this admission?: Yes Plan: discharge planning consult placed, continue to monitor for s/s of depression (5) Grand multiparity Is this a current diagnosis for this admission?: Yes Plan: delivered - Time Spent with Patient Time with patient: Less than 15 minutes - Disposition Anticipated Discharge: Home Within: within 24 hours
[2019-10-30] MEDS: ACETAMINOPHEN WITH CODEINE #3 TABLET PO PRN (03:58)
[2019-10-30] MEDS: IBUPROFEN 800 MG TABLET PO SCH ×2 (05:27→14:06)
[2019-10-30 08:38] VITALS: BP 121/67
[2019-10-30] MEDS: FAMOTIDINE 20 MG TABLET PO SCH (09:28)
[2019-10-30] MEDS: PRENATAL VITAMIN W DHA CAPSULE PO SCH (09:28)
[2019-10-30] MEDS: SENNOSIDES/DOCUSATE 8.6-50 MG 1 EACH TABLET PO SCH (09:28)
[2019-10-30] MEDS: FERROUS SULFATE 325 MG TABLET PO SCH (09:28)
[2019-10-30] MEDS: DOCUSATE SODIUM 100 MG CAPSULE PO SCH (09:28)
--- NOTE | 2019-10-30 10:27 | PDOC DISCHARGE SUMMARY ---
Impression - Admit/DC Date/PCP Admission Date/Primary Care Provider: 10/27/19 19:12 ALVARO ESQUIVEL MD Discharge Date: 10/30/19 - PP Day #2, doing well, no complaints. B+ Rubella immune - Additional Information Resuscitation Status: Full Code Discharge Diet: As Tolerated, Regular Referrals: ALVARO ESQUIVEL MD [Primary Care Provider] - Prescriptions: Ferrous Sulfate [Feosol 325 mg Tablet] 325 mg PO DAILY #30 tablet Ibuprofen [Motrin 800 mg Tablet] 800 mg PO Q8 #60 tablet Home Medications: No.137/Iron/Folic Acd [ Vitamin Tablet] 1 tab PO DAILY 03/05/14 Ferrous Sulfate [Feosol 325 mg Tablet] 325 mg PO DAILY #30 tablet 10/30/19 Ibuprofen [Motrin 800 mg Tablet] 800 mg PO Q8 #60 tablet 10/30/19 HPI Reason(s) for Admission: Onset of Labor Intrapartum Procedure(s): Spontaneous Vaginal Delivery Complication(s): Hemorrhage-Uterine Atony Results Laboratory Results: WBC 8.7 10^3/uL (4.0-10.5) 10/29/19 06:33 RBC 4.40 10^6/uL (3.72-5.28) 10/29/19 06:33 Hgb 13.2 g/dL (12.0-15.5) 10/29/19 06:33 Hct 37.3 % (36.0-47.0) 10/29/19 06:33 MCV 85 fl (80-97) 10/29/19 06:33 MCH 30.0 pg (27.0-33.4) 10/29/19 06:33 MCHC 35.3 g/dL (32.0-36.0) 10/29/19 06:33 RDW 16.8 % (11.5-14.0) H 10/29/19 06:33 Plt Count 178 10^3/uL (150-450) 10/29/19 06:33 Lymph % (Auto) 17.0 % (13-45) 10/27/19 19:45 [place] % (Auto) 6.4 % (3-13) 10/27/19 19:45 Eos % (Auto) 0.5 % (0-6) 10/27/19 19:45 Baso % (Auto) 0.6 % (0-2) 10/27/19 19:45 Absolute Neuts (auto) 7.7 10^3/uL (1.7-8.2) 10/27/19 19:45 Absolute Lymphs (auto) 1.7 10^3/uL (0.5-4.7) 10/27/19 19:45 Absolute Monos (auto) 0.7 10^3/uL (0.1-1.4) 10/27/19 19:45 Absolute Eos (auto) 0.0 10^3/uL (0.0-0.6) 10/27/19 19:45 Absolute Basos (auto) 0.1 10^3/uL (0.0-0.2) 10/27/19 19:45 Seg Neutrophils % 75.5 % (42-78) 10/27/19 19:45 Urine Color YELLOW 10/27/19 18:35 Urine Appearance CLOUDY 10/27/19 18:35 Urine pH 6.0 (5.0-9.0) 10/27/19 18:35 Ur Specific [place] 1.031 10/27/19 18:35 Urine Protein 30 mg/dL (NEGATIVE) H 10/27/19 18:35 Urine Glucose (UA) 50 mg/dL (NEGATIVE) H 10/27/19 18:35 Urine Ketones TRACE mg/dL (NEGATIVE) H 10/27/19 18:35 Urine Blood NEGATIVE (NEGATIVE) 10/27/19 18:35 Urine Nitrite NEGATIVE (NEGATIVE) 10/27/19 18:35 Urine Bilirubin NEGATIVE (NEGATIVE) 10/27/19 18:35 Urine Urobilinogen 4.0 mg/dL (<2.0) H 10/27/19 18:35 Ur Leukocyte Esterase NEGATIVE (NEGATIVE) 10/27/19 18:35 Urine Ascorbic Acid NEGATIVE (NEGATIVE) 10/27/19 18:35 Urine Opiates Screen NEGATIVE 10/27/19 18:35 Urine Methadone Screen NEGATIVE 10/27/19 18:35 Ur Barbiturates Screen NEGATIVE 10/27/19 18:35 Ur Phencyclidine Scrn NEGATIVE 10/27/19 18:35 Ur Amphetamines Screen NEGATIVE 10/27/19 18:35 U Benzodiazepines Scrn NEGATIVE 10/27/19 18:35 Urine Cocaine Screen NEGATIVE 10/27/19 18:35 U Marijuana (THC) Screen NEGATIVE 10/27/19 18:35 RPR NONREACTIVE (NONREACTIVE) 10/27/19 19:45 Blood Type B POSITIVE 10/27/19 19:45 Antibody Screen NEGATIVE 10/27/19 19:45 Plan Plan of Treatment: d/c to home, f/up with [facility] in 4 wks for PP check Time Spent: Less than 30 Minutes
== END 2019-10-30 14:30 | disposition home or self-care (01) | DRG 807 ==
LOC: LC 18:27 → LR 19:12 → 2S 10-28 10:27
PROVIDERS: ADMIT Student in an Organized Health Care Education/Training Program; ATTEND Student in an Organized Health Care Education/Training Program
PROC: 10E0XZZ Delivery of Products of Conception, External Approach (ICD-10-PCS; principal; 2019-10-28)
PROC: 10907ZC Drainage of Amniotic Fluid, Therapeutic from Products of Conception, Via Natural or Artificial Opening (ICD-10-PCS; 2019-10-28)
PROC: 3E033VJ Introduction of Other Hormone into Peripheral Vein, Percutaneous Approach (ICD-10-PCS; 2019-10-28)
DX: O99.824 Streptococcus B carrier state complicating childbirth (principal); Z37.0 Single live birth; O32.6XX0 Maternal care for compound presentation, not applicable or unspecified; O62.3 Precipitate labor; O72.1 Other immediate postpartum hemorrhage; Z3A.40 40 weeks gestation of pregnancy
CPT/HCPCS: 36415; 80307; 81005; 85025; 85027; 86592; 86850; 86900; 86901; J2540; J2590; J3010; J3490; J7060

== ENCOUNTER → 2020-05-07 | Outpatient (CLI) | payer MEDICAID ==
--- NOTE | 2020-05-07 15:01 | RADIOLOGY REPORT (SQ) ---
EXAM DESCRIPTION: LUMBAR SPINE 2 VIEWS IMAGES COMPLETED DATE/TIME: 05/07/2020 2:44 pm REASON FOR STUDY: LUMBAGO WITH SCIATICA, RIGHT SIDE M54.41 LUMBAGO WITH SCIATICA, RIGHT SIDE J30.9 ALLERGIC RHINITIS, UNSPECIFIED COMPARISON: None. NUMBER OF VIEWS: Two views. TECHNIQUE: AP and lateral radiographic images acquired of the lumbar spine. LIMITATIONS: None. FINDINGS: MINERALIZATION: Normal. SEGMENTATION: Normal. No transitional anatomy. ALIGNMENT: Very subtle scoliosis with concavity toward the right. This could be positional. VERTEBRAE: Maintained height. No fracture or worrisome bone lesion. DISCS: Preserved height. No significant osteophytes or end plate irregularity. POSTERIOR ELEMENTS: Pedicles and facets are intact. No pars defect or posterior arch defects. HARDWARE: None in the spine. PARASPINAL SOFT TISSUES: Normal. PELVIS: Intact as visualized. No fractures or worrisome bone lesions. SI joints intact. OTHER: No other significant finding. IMPRESSION: No significant findings. Very mild lumbar scoliosis with concavity toward the right. T his could be positional. TECHNICAL DOCUMENTATION: JOB ID: [id number] 2010 [employer]- All Rights Reserved Reading location - IP/workstation name: [email or web address]
== END ==
LOC: OD 14:10
PROVIDERS: ATTEND Otolaryngology
DX: J30.9 Allergic rhinitis, unspecified (principal); M54.41 Lumbago with sciatica, right side; M41.86 Other forms of scoliosis, lumbar region
CPT/HCPCS: 36415; 72100; 82785; 86003